=== PATIENT | male | born 1975 | race Caucasian/White ===

== ENCOUNTER → 2021-04-22 17:21 | Outpatient (CLI) | payer BC, SELFPAY ==
[2021-04-22 19:14] LABS: Basophils # 0.1 K/mm3 (0-0.2); Eosinophils # 0.1 K/mm3 (0.0-0.4); Eosinophils % 1.6 % (0.1-12.0); Hematocrit 53.6 % (42.0-52.0); Lymphocytes # 2.7 K/mm3 (0.7-4.5); Lymphocytes % 30.8 % (10-50); Mean Corpuscular HGB Conc 34.4 g/dL (31.8-35.4); Mean Corpuscular Hemoglobin 32.3 pg (27.0-31.2); Mean Platelet Volume 9.4 fl (7.4-10.4); Monocytes # 0.5 K/mm3 (0.1-1.0); Monocytes % 5.1 % (1.7-9.3); Neutrophils # 5.5 K/mm3 (1.8-7.8); Neutrophils % 61.5 % (37.0-80.0); Platelet Count 175 K/mm3 (142-424); Red Cell Distribution Width 12.7 % (11.5-17.5); White Blood Count 8.9 K/mm3 (4.8-10.8)
[2021-04-22 19:35] LABS: Alanine Aminotransferase 138 U/L (12-78); Albumin/Globulin Ratio 1.6 (1.1-1.8); Alkaline Phosphatase 128 U/L (38-126); Anion Gap 16.5 mEq/L (5-15); Aspartate Amino Transferase 97 U/L (17-59); Bilirubin,Total 0.9 mg/dl (0.2-1.3); Blood Urea Nitrogen 7 mg/dl (9-20); Calcium 9.8 mg/dl (8.4-10.2); Carbon Dioxide 25 mmol/L (22.0-30.0); Chloride 102 mmol/L (98-107); Cholesterol 201 mg/dl (140-200); Estimated Glomerular Filt Rate 105 ml/min (>60); GFR (African American) 127 ML/MIN (>60); Globulin 3.1 g/dL (1.3-3.2); Glucose 94 mg/dl (74-100); Potassium 4.5 mmoL/L (3.5-5.1); Sodium 139 mmol/L (136-145); Total Protein,Serum 8.1 g/dl (6.3-8.2); Triglycerides 48 mg/dl (30-150); VLDL Cholesterol 10 mg/dL (0-40)
[2021-04-22 19:45] LABS: Chol/HDL Ratio 1.5 (1-3.5); HDL Cholesterol 136 mg/dl (40-60)
[2021-04-22 19:46] LABS: Direct LDL Cholesterol 58.29 mg/dL (100-129)
[2021-04-22 19:51] LABS: T4 (Thyroxine) 7.1 ug/dl (5.53-11.0)
[2021-04-22 19:53] LABS: 25-OH Vitamin D, Total 39.6 ng/mL (30-100)
[2021-04-22 20:05] LABS: Prostate Specific Ag Screen 1.6 ng/ml (0.0-4.0); Thyroid Stimulating Hormone 4.36 uIU/mL (0.465-4.68)
[2021-04-22 21:28] LABS: Hemoglobin 18.4 g/dL (14.1-18.0)
[2021-04-25 07:28] LABS: Hep A Ab, IgM Negative (Negative); Hepatitis B Core Antibody IgM Negative (Negative); Hepatitis B Surface Antigen Negative (Negative); Hepatitis C Antibody <0.1 s/co ratio (0.0-0.9)
== END ==
PROVIDERS: Visit Provider Nurse Practitioner Family
DX: R53.83 Other fatigue (principal); Z12.5 Encounter for screening for malignant neoplasm of prostate
CPT/HCPCS: 80053; 80061; 80074; 82306; 84436; 84443; 85025; G0103

== ENCOUNTER 2024-11-16 15:48 | Emergency (ER) | payer BC, SELFPAY ==
--- NOTE | 2024-11-16 16:11 | ED_ITS ---
Discharge Plan Disposition Patient Disposition: Home, Self-Care Condition: Good Prescriptions Prescriptions: New azithromycin [Zithromax] 250 mg tablet 250 mg PO UD DOSE PK Qty: 6 0RF Rx Instructions: Take two (2) tablets today, then one (1) tablet days #2 thru #5 benzonatate 100 mg capsule 100 mg PO TIDP PRN (Reason: Cough) Qty: 30 0RF methylprednisolone 4 mg Tablets,Dose Pack 4 mg PO DIRECTED 6 Days Qty: 21 0RF Rx Instructions: Take 1 pack as directed for 6 days amoxicillin-pot clavulanate 875-125 mg Tablet 1 tab PO Q12H Qty: 20 0RF albuterol sulfate [Ventolin HFA] 90 mcg/actuation HFA aerosol inhaler 2 puff inhalation Q6H PRN (Reason: shortness of breath or wheezing) Qty: 6.7 0RF No Action [id number]-[id number]-ZV 3.5-10,000-1 mg/mL-unit/mL-% drops,suspension 4 drp OTIC TID 10 Days Qty: 10 0RF albuterol sulfate 90 mcg/actuation aerosol powdr breath activated 2 inh INHALATION Q4-6H PRN (Reason: shortness of breath or wheezing) Qty: 1 0RF Referrals Follow up/Referrals: Robel Mesa APRN [Primary Care Provider] - See instructions Activity Restrictions/Add. Instructions Additional Instructions/Restrictions: Drink plenty of fluids. Take tylenol or ibuprofen for pain or fever. Take the medications as directed. Follow up with your regular doctor. GO TO THE ER FOR ANY WORSENING SYMPTOMS Clinical Impressions Clinical Impression: Pneumonia Instructions Patient Instructions: Pneumonia--Adult Print Language Print Language: Omani Discharge ED Provider: Ladarius Berry [facility] [place] HPI General Stated complaint: carol, weak, SOA Time Seen by Provider: 11/16/24 16:11 Related Data Previous Rx's ?Medication ?Instructions ?Recorded albuterol sulfate 90 mcg/actuation 2 inh inhalation Q4-6H PRN 04/22/21 breath activated powder inhaler shortness of breath or wheezing #1 ea xjkwulfn-fhgxvrosv-stvovickx 3.5 4 drp otic (ear) TID 10 days #10 mL 04/22/21 mg-10,000 unit/mL-1 % ear drops,susp albuterol sulfate 90 mcg/actuation 2 puff inhalation Q6H PRN 11/16/24 aerosol inhaler (Ventolin HFA) shortness of breath or wheezing #6.7 grams amoxicillin 875 mg-potassium 1 tab PO Q12H #20 tabs 11/16/24 clavulanate 125 mg tablet azithromycin 250 mg tablet 250 mg PO UD DOSE PK #6 tabs 11/16/24 (Zithromax) benzonatate 100 mg capsule 100 mg PO TIDP PRN Cough #30 caps 11/16/24 methylprednisolone 4 mg tablets in 4 mg PO DIRECTED 6 days #21 tabs 11/16/24 a dose pack Allergies Allergy/AdvReac Type Severity Reaction Status Date / Time No Known Allergies Allergy Verified 04/22/21 14:16 [facility] Disclaimer: The information contained in this section may have been updated after the patient was seen, as this information can be updated by other users. Social History Smoking Status: Current every day smoker tobacco type: cigarettes packs per day: 2 alcohol intake: current alcohol intake frequency: a few times a week current occupational status: employed Travel in the last 8 weeks: None Have you lived/traveled outside [place] in past 30 days?: No Contact w/someone who lives/traveled outside US past 30 days?: No Exposure to someone with infectious disease in past 14 days?: No Do you have a fever (greater than 100.4 F or 38 C)?: No Have you tested positive for COVID-19: No Exposed to someone with COVID-19 in past 14 days?: No Do you have a sore throat?: No Do you have a cough?: Yes Do you have any weakness?: Yes Do you have any diarrhea?: No Are you experiencing any unusual bleeding?: No Do you have any muscle aches/pain?: No Do you have any abdominal pain?: No Are you experiencing loss of taste or smell?: No ROS Obtained: Yes All systems reviewed & no additional complaints except as documented Constitutional Constitutional: Reports chills and Reports fever(s) Eyes Eyes: Denies eye discharge ENT Ears, Nose, Mouth, and Throat: Reports as per HPI Cardiovascular Cardiovascular: Denies chest pain Respiratory Respiratory: Denies chest congestion and Reports cough Gastrointestinal Gastrointestingal: Reports nausea; Denies abdominal pain, constipation, cramping, diarrhea or vomiting Musculoskeletal Musculoskeletal: Denies arthralgias Integumentary/Breasts Skin/Breast: Denies rash Neurologic Neurologic: Denies paresthesias Physical Exam General General appearance: alert and in no apparent distress Eye Eye exam: Present normal appearance, PERRL and EOMI ENT ENT exam: Present mucous membranes moist and normal external ear exam Expanded ENT Exam External ear exam: Present normal external inspection TM/Canal exam: Bilateral TM: erythema and bulging Nose exam: Absent sinus tenderness Nasal speculum exam: Bilateral: normal Mouth exam: Present normal external inspection; Absent drooling Teeth exam: Present normal inspection Throat exam: Present tonsillar erythema and tonsillomegaly Neck Neck exam: Present normal inspection, full ROM and trachea midline; Absent tenderness, lymphadenopathy or thyromegaly Chest Chest inspection: Present normal inspection and symmetric chest wall rise; Absent tenderness or rash Respiratory Respiratory exam: Present normal lung sounds bilaterally; Absent respiratory distress, wheezes, stridor or accessory muscle use Cardiovascular Cardiovascular exam: Present regular rate, normal rhythm and normal heart sounds Abdominal Exam Abdominal exam: Present soft; Absent distention, tenderness, guarding, rebound or rigidity Extremities Exam Extremities exam: Present normal inspection, full ROM and normal capillary refill; Absent tenderness or calf tenderness Back Exam Back exam: Present normal inspection and full ROM; Absent tenderness Neurological Exam Neurological exam: Present alert and oriented X3 Psychiatric Psychiatric exam: Present normal affect and normal mood Skin Skin exam: Present warm, dry, intact and normal color Lymphatic Lymphatic Findings: no adenopathy Medical Decision Making Medical Records Medical records reviewed: No I reviewed the patient's medical records. Screening: Per USPSTF and CDC recommendations, given the prevalence of disease in our region, it is our hospital?s policy to screen for HIV and viral Hepatitis for all patients aged 18 and over and those with ongoing risk factors. Chon Inquiry Pt receiving controlled substance: No Lab Data Lab results reviewed: Yes I reviewed the patient's lab results.
[2024-11-16 16:16] VITALS: BP 132/99; PULSE 119; RESP 21; TEMP 36.8; O2SAT 88; BMI 23.7
[2024-11-16] MEDS: IPRATROPIUM/ALBUTEROL 3 ML NEB IH (16:20)
--- NOTE | 2024-11-16 16:23 | XR_ITS ---
PROCEDURE INFORMATION: Exam: XR Chest Exam date and time: 11/16/2024 4:29 PM Age: 49 years old Clinical indication: Cough; Additional info: Shortness of breath, cough, flu like symptoms TECHNIQUE: Imaging protocol: Radiologic exam of the chest. Views: 2 views. COMPARISON: No relevant prior studies available. FINDINGS: Lungs: There is a consolidation in the right lower lobe concerning for pneumonia. Pleural spaces: No large effusion or pneumothorax. Heart/Mediastinum: No evidence of mediastinal widening or cardiac silhouette enlargement; the mediastinum and heart appear within normal limits for contour and size. Bones/joints: No evidence of acute osseous abnormalities within the visualized portions of the thoracic spine and ribs. Osseous structures appear appropriate for patient age. IMPRESSION: There is a consolidation in the right lower lobe concerning for pneumonia.
[2024-11-16 16:39] LABS: UTC Influenza A Antigen Negative (Negative); UTC Influenza B Antigen Negative (Negative)
[2024-11-16] MEDS: DEXAMETHASONE 4MG/ML 1ML VIAL 8 MG IM (17:45)
[2024-11-16] MEDS: cefTRIAXone 1GM VIAL 1 GM IM (17:45)
[2024-11-16] MEDS: LIDOCAINE 1% 5ML PF VIAL IM (17:45)
[2024-11-16 17:59] VITALS: BP 132/99; PULSE 119; RESP 21; TEMP 36.8; O2SAT 94
[2024-11-16 18:00] LABS: Coronavirus 19, PCR Not Detected (NotDetected); Influenza A, PCR Not Detected (NotDetected); Influenza B, PCR Not Detected (NotDetected)
== END 2024-11-16 18:00 | disposition home or self-care (01) ==
PROVIDERS: Emergency Provider Nurse Practitioner Family; PCP Nurse Practitioner Family
DX: J18.9 Pneumonia, unspecified organism (principal)
CPT/HCPCS: 71046; 87636; 87804; 99212; G0381; J0696; J1100; J7620

== ENCOUNTER 2024-12-03 10:50 | Emergency (ER) | payer BC, SELFPAY ==
--- NOTE | 2024-12-03 10:50 | ECG_ITS ---
APPROVED REPORT Exam: Resting ECG HR:111 bpm ECG Measurements Heart Rate 111 AXES DC 138 P 75 QRSd 92 QRS 5 QT 337 T 63 QTc 402 Conclusion SINUS TACHYCARDIA ABNORMAL RHYTHM ECG UNCONFIRMED REPORT EKG with sinus tachycardia with regular rate of [address] elevation or depression. QTc 402, DC normal at 138 Electronically signed by : DAPHNEY OTERO, 12/04/2024 07:00:12
[2024-12-03 10:51] VITALS: BP 181/101; PULSE 109; RESP 20; TEMP 36.8; O2SAT 95; BMI 24.3
[2024-12-03 11:00] VITALS: BP 157/110; PULSE 115; RESP 19; O2SAT 95
--- NOTE | 2024-12-03 11:08 | HMH.EDGENADL ---
Discharge Plan Disposition Patient Disposition: Home, Self-Care Condition: Fair Prescriptions Prescriptions: No Action No Known Home Medications Referrals Follow up/Referrals: Clark Mayo MD [Staff Physician] - See instructions (Establish PCP) Provider,MD Stephon [Primary Care Provider] - See instructions Activity Restrictions/Add. Instructions Additional Instructions/Restrictions: You are being referred to a primary care doctor to establish care. Call this number [phone] to schedule an appointment. Cut back on your alcohol use as this can lead to liver failure. If you develop any new or worsening symptoms, or if you become concerned for your health for any reason, return to the emergency department for evaluation Clinical Impressions Clinical Impression: Chest pain, Localized swelling of both lower legs Print Language Print Language: Irish Discharge ED Provider: Ranjit Sultana Adult HPI General Chief complaint: Chest Pain Stated complaint: Chest Pain Time Seen by Provider: 12/03/24 11:08 History of Present Illness HPI narrative: Nirmal Hayward is a 49-year-old male with a history of alcohol abuse and tobacco use who presents to the emergency department for complaints of chest pain and productive cough. Patient states that approximately 2 weeks ago, he was diagnosed with pneumonia at urgent treatment center but has not gotten any better. He states that his chest pain is more of a congestion on the left side of his chest that radiates to his left arm. He denies any vomiting, abdominal pain or diarrhea. He does note that he drinks at least 10 beers a day and started drinking a pint of whiskey approximately 5 months ago. At last drink was on the way here. He does not have a primary care physician. He is also complaining of swelling to his bilateral feet, left worse than right, that began approximately 2 weeks ago. Related Data Home Medications ?Medication ?Instructions ?Recorded ?Confirmed No Known Home Medications 12/03/24 12/03/24 Allergies Allergy/AdvReac Type Severity Reaction Status Date / Time Penicillins Allergy Rash Verified 12/03/24 12:10 [facility] Disclaimer: The information contained in this section may have been updated after the patient was seen, as this information can be updated by other users. Social History Smoking Status: Current every day smoker tobacco type: cigarettes packs per day: 2 alcohol intake: current alcohol intake frequency: a few times a week current occupational status: employed Travel in the last 8 weeks: None Have you lived/traveled outside US in past 30 days?: No Contact w/someone who lives/traveled outside US past 30 days?: No Exposure to someone with infectious disease in past 14 days?: No Do you have a fever (greater than 100.4 F or 38 C)?: No Have you tested positive for COVID-19: No Exposed to someone with COVID-19 in past 14 days?: No Do you have a sore throat?: No Do you have a cough?: No Do you have any weakness?: No Do you have any diarrhea?: No Are you experiencing any unusual bleeding?: No Do you have any muscle aches/pain?: No Do you have any abdominal pain?: No Are you experiencing loss of taste or smell?: No Other Medical History Have you received the Pneumonia Vaccine: No ROS Obtained: Yes Systems reviewed as appropriate & no additional complaints except as documented Physical Exam General General appearance: alert and in no apparent distress Head Head exam: atraumatic Eye Eye exam: Present normal appearance ENT ENT exam: Present normal external ear exam Neck Neck exam: Present full ROM Chest Chest inspection: Present symmetric chest wall rise Respiratory Respiratory exam: Present normal lung sounds bilaterally; Absent respiratory distress Cardiovascular Cardiovascular exam: Present normal rhythm and tachycardia Abdominal Exam Abdominal exam: Present soft; Absent tenderness or guarding exam: Present deferred Extremities Exam Extremities exam: Present edema (Pitting edema to the dorsum of both feet); Absent calf tenderness Back Exam Back exam: Present normal inspection Neurological Exam Neurological exam: Present alert and oriented X3 Psychiatric Psychiatric exam: Present normal affect Skin Skin exam: Present warm and dry Medical Decision Making Medical Records Screening: Per USPSTF and CDC recommendations, given the prevalence of disease in our region, it is our hospital?s policy to screen for HIV and viral Hepatitis for all patients aged 18 and over and those with ongoing risk factors. Chon Inquiry Pt receiving controlled substance: No Vital Signs: 12/03/24 10:51 12/03/24 11:00 12/03/24 12:00 Temperature 98.3 F Temperature Source Oral Pulse Rate 115 H 91 H Pulse Rate [Left Radial] 109 H Respiratory Rate 20 19 17 Blood Pressure 157/110 H 135/80 Blood Pressure [Right Arm] 181/101 H Blood Pressure Mean [Right Arm] 127 02 Sat by Pulse Oximetry 95 95 94 L Oxygen Delivery Method Room Air Room Air Room Air 12/03/24 12:30 12/03/24 13:00 12/03/24 13:43 Temperature 98.0 F Temperature Source Pulse Rate 103 H 98 H 95 H Pulse Rate [Left Radial] Respiratory Rate 15 21 16 Blood Pressure 138/106 H 136/101 H 136/101 H Blood Pressure [Right Arm] Blood Pressure Mean [Right Arm] 02 Sat by Pulse Oximetry 94 L 90 L Oxygen Delivery Method Room Air Room Air Room Air Lab Data Lab Results 12/03/24 10:55: WBC 3.9 L, RBC 4.24 L, Hgb 14.7, Hct 43.7, MCV 103.1 H, MCH 34.7 H, MCHC 33.6, RDW 14.1, Plt Count 84 L, MPV 10.6 H, Neut % (Auto) 50.5, Lymph % (Auto) 36.8, [place] % (Auto) 9.1, Eos % (Auto) 1.8, Baso % (Auto) 1.3, Neut # (Auto) 2.0, Lymph # (Auto) 1.5, [place] # (Auto) 0.4, Eos # (Auto) 0.1, Baso # (Auto) 0.1, PT 8.9 L, INR 0.79 L, D-Dimer 0.92 H, Sodium 141, Potassium 4.7, Chloride 101, Carbon Dioxide 31 H, Anion Gap 13.7, BUN 3 L, Creatinine 0.50 L, Estimated Creat Clear 185, Estimated GFR 177, Est GFR ( Amer) 215, Glucose 102 H, Calcium 8.7, Total Bilirubin 0.6, AST 118 H, ALT 69, Alkaline Phosphatase 247 H, Troponin I < 0.01, C-Reactive Protein 9.2 H, NT-Pro-B Natriuret Pep < 20.0, Total Protein 7.9, Albumin 4.1, Globulin 3.8 H, Albumin/Globulin Ratio 1.1, HCV Ab ANSELMO w/Rflx PCR Qn Negative, HIV Ag/Ab Combo Qual Negative 12/03/24 12:10: SARS-CoV-2 (PCR) Not detected, Influenza A Untype (PCR) Not detected, Influenza Type B (PCR) Not detected 12/03/24 10:55 12/03/24 10:55 Orders (Tests/Meds): ORDERS Category Date Time Status CXR 2 view (NOT portable) [XR chest 2V] Stat Exams 12/03/24 11:15 Completed BNP [NT Pro Brain Natriuretic Pep.] Stat Lab 12/03/24 10:55 Completed CBC w/Auto Diff [Complete Blood Count Auto Diff] Stat Lab 12/03/24 10:55 Completed CMP [Comprehensive Metabolic Panel] Stat Lab 12/03/24 10:55 Completed CRP [C-Reactive Protein] Stat Lab 12/03/24 10:55 Completed D-Dimer Stat Lab 12/03/24 10:55 Completed HIV Combo Stat Lab 12/03/24 10:55 Completed Hepatitis C Ab Qual. W/ RFX Stat Lab 12/03/24 10:55 Completed PT INR [Prothrombin Time INR] Stat Lab 12/03/24 10:55 Completed Rapid PCR Covid and Flu A/B Stat Lab 12/03/24 12:10 Completed Troponin I Stat Lab 12/03/24 10:55 Completed ECG Data Tracing #1: I reviewed this ECG and interpreted as documented below: EKG interpreted by me personally. Sinus tachycardia with a heart rate of [address] elevation or depression. No T wave inversions. QTc normal at 402, GA interval normal at 138. HEART Score History (anamnesis): Slightly suspicious ECG: Normal Age: 45-65 years Risk factors: 1-2 risk factors Troponin: </= normal limit HEART Score: 2 Medical Decision Narrative: Nirmal Mejia is a 49-year-old male with a history of alcohol abuse and tobacco use who presents to the emergency department for complaints of 2 weeks of cough and left-sided chest pain after being diagnosed with pneumonia approximately 2 weeks ago. He also reports worsening bilateral lower extremity swelling. He states that he drinks at least 10 beers a day and over the last 5 months has started drinking a pint of whiskey every day in addition to this. He denies any abdominal pain, fever or history of heart failure. On arrival, patient is hemodynamically stable, mildly tachycardic, afebrile, maintaining oxygen saturation above 90%. Physical exam is as stated above and is significant for pitting edema to the dorsum of both feet. Differential diagnosis includes, but is not limited to: ACS, pulmonary embolism, pneumonia, alcoholic cirrhosis, heart failure, among others. Workup in the emergency department included CBC with differential, PT/INR, D-dimer, CRP, CMP, COVID/flu testing, EKG, chest x-ray Chest x-ray interpreted by me personally. No focal consolidations, no pneumothoraces, no pulmonary effusions. See radiology report for details. Patient's EKG is interpreted as above. No significant findings on EKG. Laboratory studies demonstrated white blood cell count mildly low at 3.9 but no anemia, mildly low PT of 8.9, INR of 0.79, D-dimer elevated at 0.92, however based on years criteria, PE is unlikely at this time and no indication for CT PE. CMP with elevated AST of 118 and ALT of 69, alk phos elevated at 247. This could be secondary to alcohol use. Initial troponin less than 0.01. CRP mildly elevated 9.2. Negative flu/COVID. Patient has no acute findings on his workup today. He could be developing early cirrhosis given mild elevation in liver enzymes with his significant alcohol use. This could explain his bilateral lower extremity edema. Patient does not currently have a primary care physician, however is felt that he would greatly benefit from establishing care with a primary care physician. He is being referred to her primary care physician and was encouraged to call them to arrange an appointment as soon as possible. All questions were answered. He demonstrated understanding and was in agreement with this plan. He was then discharged from the emergency department in stable condition Critical Care Critical Care Time Critical Care Time: No
--- NOTE | 2024-12-03 11:15 | XR_ITS ---
FINAL REPORT CLINICAL HISTORY: Recent pneumonia, chest pain, smoker COMPARISON: None FINDINGS: No acute pulmonary density is evident. There is no evidence of effusion or other pleural disease. The mediastinum has a normal appearance. The cardiac silhouette is unremarkable. IMPRESSION: Unremarkable chest exam. Reviewed, Interpreted and Dictated by Gary Hart MD Transcribed by Jodi Nam Authenticated and [facility]
[2024-12-03 11:28] LABS: Basophils # 0.1 K/mm3 (0-0.2); Basophils % 1.3 % (0.1-2.0); Eosinophils # 0.1 K/mm3 (0.0-0.4); Eosinophils % 1.8 % (0.1-12.0); Hematocrit 43.7 % (42.0-52.0); Hemoglobin 14.7 g/dL (14.1-18.0); Lymphocytes # 1.5 K/mm3 (0.7-4.5); Lymphocytes % 36.8 % (10-50); Mean Corpuscular HGB Conc 33.6 g/dL (31.8-35.4); Mean Corpuscular Hemoglobin 34.7 pg (27.0-31.2); Mean Corpuscular Volume 103.1 fl (80-94); Mean Platelet Volume 10.6 fl (7.4-10.4); Monocytes # 0.4 K/mm3 (0.1-1.0); Monocytes % 9.1 % (1.7-9.3); Neutrophils % 50.5 % (37.0-80.0); Platelet Count 84 K/mm3 (142-424); Red Blood Count 4.24 M/mm3 (4.60-6.20); Red Cell Distribution Width 14.1 % (11.5-17.5); White Blood Count 3.9 K/mm3 (4.8-10.8)
[2024-12-03 11:29] LABS: Albumin Level 4.1 g/dl (3.5-5.0); Chloride 101 mmol/L (98-107); Potassium 4.7 mmoL/L (3.5-5.1); Sodium 141 mmol/L (136-145)
[2024-12-03 11:31] LABS: Anion Gap 13.7 mEq/L (5-15); Blood Urea Nitrogen 3 mg/dl (9-20); Carbon Dioxide 31 mmol/L (22.0-30.0); Creatinine Clearance Estimated 185 mL/min (50-200); Estimated Glomerular Filt Rate 177 ml/min (>60); GFR (African American) 215 ML/MIN (>60)
[2024-12-03 11:32] LABS: Alanine Aminotransferase 69 U/L (12-78); Albumin/Globulin Ratio 1.1 (1.1-1.8); Alkaline Phosphatase 247 U/L (38-126); Aspartate Amino Transferase 118 U/L (17-59); Bilirubin,Total 0.6 mg/dl (0.2-1.3); Calcium 8.7 mg/dl (8.4-10.2); Globulin 3.8 g/dL (1.3-3.2); Glucose 102 mg/dl (74-100); INR 0.79 (0.9-1.1); Prothrombin Time 8.9 seconds (9.2-12.1); Total Protein,Serum 7.9 g/dl (6.3-8.2)
[2024-12-03 11:38] LABS: C-Reactive Protein 9.2 mg/L (0-4)
[2024-12-03 11:45] LABS: NT Pro Brain Natriuretic Pep. < 20.0 pg/mL (0-125)
[2024-12-03 11:48] LABS: Troponin I < 0.01 ng/ml (0.00-0.034)
[2024-12-03 12:00] VITALS: BP 135/80; PULSE 91; RESP 17; O2SAT 94
[2024-12-03 12:12] LABS: Coronavirus 19, PCR Not Detected (NotDetected); Influenza A, PCR Not Detected (NotDetected); Influenza B, PCR Not Detected (NotDetected)
[2024-12-03 12:17] LABS: HIV Combo NEGATIVE (Negative)
[2024-12-03 12:25] LABS: Hepatitis C Ab Qual. W/ RFX NEGATIVE (Negative)
[2024-12-03 12:30] VITALS: BP 138/106; PULSE 103; RESP 15; O2SAT 94
[2024-12-03 13:00] VITALS: BP 136/101; PULSE 98; RESP 21; O2SAT 90
[2024-12-03 13:10] LABS: D-Dimer 0.92 ug/mL (0.0-0.5)
[2024-12-03 13:43] VITALS: BP 136/101; PULSE 95; RESP 16; TEMP 36.7; O2SAT 98
== END 2024-12-03 13:43 | disposition home or self-care (01) ==
PROVIDERS: Emergency Provider Student in an Organized Health Care Education/Training Program
DX: R07.9 Chest pain, unspecified (principal); R22.43 Localized swelling, mass and lump, lower limb, bilateral; R05.9 Cough, unspecified; F10.10 Alcohol abuse, uncomplicated; F17.210 Nicotine dependence, cigarettes, uncomplicated
CPT/HCPCS: 71046; 80053; 83880; 84484; 85025; 85378; 85610; 86140; 86803; 87389; 87636; 93005; 99284

== ENCOUNTER 2024-12-28 13:26 | Inpatient (IN) | payer BC, SELFPAY ==
[2024-12-28] VITALS (32 sets, daily range): BP systolic 122–185; BP diastolic 81–113; PULSE 84–130; RESP 12–23; TEMP 36.6–37.1; O2SAT 86–99; BMI 23.5; BMI 23.1
--- NOTE | 2024-12-28 13:26 | ECG_ITS ---
APPROVED REPORT Exam: Resting ECG HR:97 bpm ECG Measurements Heart Rate 97 AXES DE 138 P 71 QRSd 106 QRS 75 QT 361 T 32 QTc 416 Conclusion SINUS RHYTHM NORMAL ECG Electronically signed by : NASEEM ALVAREZ, 12/29/2024 06:28:03
--- NOTE | 2024-12-28 14:03 | ED_ITS ---
Discharge Plan Disposition Patient Disposition: Admitted Clinical Impressions Clinical Impression: Alcohol withdrawal, Pancreatitis Discharge ED Provider: Erica Page General Adult HPI <Elma Molina MD - Last Filed: 12/28/24 15:39> General Chief complaint: Weakness Stated complaint: Chest Tightness Time Seen by Provider: 12/28/24 14:03 Mode of Arrival: Wheelchair Source of Information: Patient Description of Symptoms (Recalled from ER Triage Doc. by RN): Patient states he is unable to walk, had pneumonia a couple weeks ago and hasn't gotten any better, complaint of peeing blood and dark tarry stools for a couple of weeks. Patient states that he drinks 15 beers a day and that his last drink was this morning. History of Present Illness HPI narrative: Patient is a 49-year-old with past medical history significant for alcohol use disorder who presents to the emergency department with inability to walk. Patient says that over the last 2 weeks he has had difficulty with balance and has numbness in tingling in his bilateral upper and lower extremities hands and feet worse than proximal extremities. Patient drinks 15+ beers per day last drink was this morning. He went to urgent care today and they referred him to the emergency department. Patient has had withdrawals in the past. Has never had seizures from his withdrawals. Related Data Home Medications ?Medication ?Instructions ?Recorded ?Confirmed No Known Home Medications 12/03/24 12/28/24 Allergies Allergy/AdvReac Type Severity Reaction Status Date / Time Penicillins Allergy Rash Verified 12/03/24 12:10 PFSH <Elma Molina MD - Last Filed: 12/28/24 15:39> [facility] Disclaimer: The information contained in this section may have been updated after the patient was seen, as this information can be updated by other users. Family History Other Lung cancer Social History Smoking Status: Current every day smoker tobacco type: cigarettes packs per day: 2 alcohol intake: current alcohol intake frequency: a few times a week current occupational status: employed Travel in the last 8 weeks: None Have you lived/traveled outside [place] in past 30 days?: No Contact w/someone who lives/traveled outside US past 30 days?: No Exposure to someone with infectious disease in past 14 days?: No Do you have a fever (greater than 100.4 F or 38 C)?: No Have you tested positive for COVID-19: No Exposed to someone with COVID-19 in past 14 days?: No Do you have a sore throat?: No Do you have a cough?: No Do you have any weakness?: No Are you experiencing any nausea/vomitting?: No Do you have any diarrhea?: No Are you experiencing any unusual bleeding?: No Do you have any muscle aches/pain?: No Do you have any abdominal pain?: No Are you experiencing loss of taste or smell?: No Other Medical History Have you received the Pneumonia Vaccine: No <Elma Molina MD - Last Filed: 12/28/24 15:39> ROS Obtained: Yes All systems reviewed & no additional complaints except as documented Physical Exam <Elma Molina MD - Last Filed: 12/28/24 15:39> General General appearance: alert Comment: Clinically sober Eye Eye exam: Present PERRL and EOMI (Left beating nystagmus) ENT ENT exam: Present mucous membranes dry Respiratory Respiratory exam: Present normal lung sounds bilaterally; Absent respiratory distress Cardiovascular Cardiovascular exam: Present regular rate and tachycardia Abdominal Exam Abdominal exam: Present soft; Absent distention or tenderness Neurological Exam Neurological exam: Present alert, oriented X3 and other (Decreased bilateral upper and lower extremity); Absent normal gait (Wide-based gait) Expanded Neurological Exam Cerebellar function: Abnormal Left: finger to nose and heel to gonzalez and Abnormal Right: finger to nose and heel to gonzalez Cerebellar function: wide-based gait Medical Decision Making <Elma Molina MD - Last Filed: 12/28/24 15:39> Medical Records Screening: Per USPSTF and CDC recommendations, given the prevalence of disease in our region, it is our hospital?s policy to screen for HIV and viral Hepatitis for all patients aged 18 and over and those with ongoing risk factors. Chon Inquiry Pt receiving controlled substance: No Vital Signs: 12/28/24 13:29 12/28/24 13:30 12/28/24 14:00 Temperature 97.9 F Temperature Source Oral Pulse Rate 99 H Pulse Rate [Radial] 96 H Respiratory Rate 17 18 13 Blood Pressure 147/103 H 150/94 H Blood Pressure [Right Arm] 147/103 H Blood Pressure Mean 112 Blood Pressure Mean [Right Arm] 117 Blood Pressure Source Blood Pressure Source [Right Arm] Automatic Cuff Blood Pressure Position Blood Pressure Position [Right Arm] Sitting 02 Sat by Pulse Oximetry 99 96 Oxygen Delivery Method Room Air 12/28/24 14:15 12/28/24 14:30 12/28/24 14:45 Temperature Temperature Source Pulse Rate 97 H 97 H 109 H Pulse Rate [Radial] Respiratory Rate 12 19 12 Blood Pressure 154/93 H Blood Pressure [Right Arm] Blood Pressure Mean Blood Pressure Mean [Right Arm] Blood Pressure Source Blood Pressure Source [Right Arm] Blood Pressure Position Blood Pressure Position [Right Arm] 02 Sat by Pulse Oximetry 93 L 95 95 Oxygen Delivery Method 12/28/24 15:00 12/28/24 15:31 12/28/24 16:00 Temperature Temperature Source Pulse Rate 106 H Pulse Rate [Radial] Respiratory Rate 18 23 16 Blood Pressure 143/95 H 124/91 H 143/92 H Blood Pressure [Right Arm] Blood Pressure Mean 111 Blood Pressure Mean [Right Arm] Blood Pressure Source Blood Pressure Source [Right Arm] Blood Pressure Position Blood Pressure Position [Right Arm] 02 Sat by Pulse Oximetry 86 L Oxygen Delivery Method 12/28/24 16:30 12/28/24 16:53 Temperature 97.9 F Temperature Source Oral Pulse Rate 106 H Pulse Rate [Radial] Respiratory Rate 14 14 Blood Pressure 122/83 122/83 Blood Pressure [Right Arm] Blood Pressure Mean Blood Pressure Mean [Right Arm] Blood Pressure Source Automatic Cuff Blood Pressure Source [Right Arm] Blood Pressure Position Sitting Blood Pressure Position [Right Arm] 02 Sat by Pulse Oximetry Oxygen Delivery Method Room Air Lab Data Lab Results 12/28/24 13:40: WBC 2.5 L, RBC 4.01 L, Hgb 14.4, Hct 40.3 L, MCV 100.5 H, MCH 35.9 H, MCHC 35.7 H, RDW 14.3, Plt Count 45 L*, MPV 11.8 H, Neut % (Auto) 31.1 L , Lymph % (Auto) 55.1 H, [place] % (Auto) 10.6 H, Eos % (Auto) 1.2, Baso % (Auto) 2.0, Neut # (Auto) 0.8 L*, Lymph # (Auto) 1.4, [place] # (Auto) 0.3, Eos # (Auto) 0.0, Baso # (Auto) 0.1, Total Counted 100, Neutrophils % (Manual) 30 L, L ymphocytes % (Manual) 54 H, Monocytes % (Manual) 13 H, Eosinophils % (Manual) 3, Platelet Estimate Marked decrease, Poikilocytosis 1+, Target Cells 1+, PT 10.3, INR 0.91, APTT 24.9, Sodium 137, Potassium 3.6, Chloride 99, Carbon Dioxide 29, Anion Gap 12.6, BUN 6 L, Creatinine 0.50 L, Estimated Creat Clear 174, Estimated GFR 177, Est GFR ( Amer) 215, Glucose 99, Calcium 8.8, Phosphorus 3.7, Magnesium 1.6, Total Bilirubin 1.4 H, AST 641 H*, ALT 191 H, Alkaline Phosphatase 204 H, Total Protein 7.4, Albumin 4.3, Globulin 3.1, Albumin/Globulin Ratio 1.4, Lipase 1778 H, Vitamin B12 860, Folate 3.11, P lasma/Serum Alcohol 398 H 12/28/24 14:12: VBG pH 7.40, VBG pCO2 41.4, VBG pO2 46.0 H, VBG HCO3 25.1, VBG Total CO2 26.3, VBG O2 Saturation 77.3 H, VBG Base Excess 0.3, VBG Lactic Acid 2.4 H 12/28/24 14:35: Urine Opiates Screen Negative, Urine Methadone Screen Negative, Ur Barbituates Screen Negative, Ur Phencyclidine Scrn Negative, Ur Amphetamines Screen Negative, U Benzodiazepines Scrn Negative, Urine Cocaine Screen Negative, U Marijuana (THC) Screen Negative 12/28/24 13:40 12/28/24 13:40 Orders (Tests/Meds): ED MEDICATIONS Generic Name Dose Route Start Last Admin Trade Name Freq PRN Reason Stop Dose Admin Folic Acid 1 mg 12/29/24 09:00 Folic Acid 1mg Tablet PO 01/28/25 08:59 DAILY FARHAN Multivitamins 10 ml/ Thiamine 1,015 mls @ 150 mls/hr 12/28/24 14:30 12/28/24 14:37 HCl 100 mg/ Magnesium Sulfate IV 12/28/24 21:15 150 mls/hr 2 gm/ Lactated Ringer's .Q6H46M ONE Administration Thiamine HCl 200 mg/ Sodium 52 mls @ 208 mls/hr 12/29/24 11:00 Chloride IV 01/28/25 10:59 1100 FARHAN Magnesium Sulfate 2 gm/ 1,015 mls @ 333 mls/hr 12/29/24 09:00 Thiamine HCl 100 mg/ IV 01/28/25 08:59 Multivitamins 10 ml/ Lactated DAILY FARHAN Ringer's Lorazepam 2 mg 12/28/24 15:57 Lorazepam 2mg/Ml Vial IV 01/27/25 15:56 Q1HP PRN CIWA >16 Lorazepam 1 mg 12/28/24 15:57 Lorazepam 1mg Tablet PO 01/27/25 15:56 Q1HP PRN CIWA Score 8-15 Lorazepam 1 mg 12/28/24 15:57 Lorazepam 2mg/Ml Vial IV 01/27/25 15:56 Q1HP PRN CIWA Score 8-15 Lorazepam 1 mg 12/28/24 15:57 Lorazepam 1mg Tablet PO 01/27/25 15:56 Q6HP PRN CIWA 2-7 Sodium Chloride 10 ml 12/28/24 15:57 Sodium Chloride 0.9% 10ml Vial IV 01/27/25 15:56 NEEDED PRN to Dilute Lorazepam inj Discontinued Medications Generic Name Dose Route Start Last Admin Trade Name Freq PRN Reason Stop Dose Admin Diazepam 5 mg 12/28/24 14:17 12/28/24 14:44 Diazepam 5mg Tablet PO 01/27/25 14:16 5 mg Q6HP PRN Administration CIWA 2-7 Lactated Ringer's 1,000 mls @ 999 mls/hr 12/28/24 14:21 12/28/24 15:23 Lactated Ringer's 1000 Ml Bag IV 12/28/24 15:21 Not Given .Q1H1M ONE Thiamine HCl 400 mg/ Sodium 54 mls @ 108 mls/hr 12/28/24 15:20 Chloride IV 12/28/24 15:49 ONCE ONE Iopamidol 75 ml 12/28/24 15:38 12/28/24 15:39 Iopamidol-370 (76%);100ml Bottle IV 12/28/24 15:39 75 ml ONCE ONE Administration Phenobarbital Sodium 130 mg 12/28/24 17:00 12/28/24 18:06 Phenobarbital Sod 65mg/Ml Inj IV 12/28/24 17:01 130 mg ONCE ONE Administration Sodium Chloride 10 ml 12/28/24 15:38 12/28/24 15:39 Sodium Chloride 0.9% 10ml Syr (Rad Only) IV 12/28/24 15:39 10 ml ONCE ONE Administration ORDERS Category Date Time Status CT abdomen pelvis w con Stat Cat Scan 12/28/24 15:25 Completed Consult Forward Air Controller/Air Officer [CONS] Routine Cons 12/28/24 14:34 Active Chest XR 2 view (NOT portable) [XR chest 2V] Stat Exams 12/28/24 15:25 Completed Activated Partial Thrombo Time Routine Lab 12/28/24 13:40 Completed Complete Blood Count Auto Diff AMLAB Lab 12/29/24 06:00 Ordered Complete Blood Count Auto Diff Stat Lab 12/28/24 13:40 Completed Comprehensive Metabolic Panel AMLAB Lab 12/29/24 06:00 Ordered Comprehensive Metabolic Panel Stat Lab 12/28/24 13:40 Completed Drug Screen,Urine Routine Lab 12/28/24 16:00 Ordered Drug Screen,Urine Stat Lab 12/28/24 14:35 Completed Ethyl Alcohol Stat Lab 12/28/24 13:40 Completed Folate Stat Lab 12/28/24 13:40 Completed Lipase Stat Lab 12/28/24 13:40 Completed Magnesium AMLAB Lab 12/29/24 06:00 Ordered Magnesium Stat Lab 12/28/24 13:40 Completed Phosphorous DAILY Lab 12/29/24 06:00 Ordered Phosphorous Stat Lab 12/28/24 13:40 Completed Prothrombin Time INR Routine Lab 12/28/24 13:40 Completed Vitamin B1 Routine Lab 12/28/24 14:31 Received Vitamin B12 Stat Lab 12/28/24 13:40 Completed Venous Blood Gas Stat RT 12/28/24 14:12 Completed Medical Decision Narrative: In summary, this 49-year-old male presents to the emergency department today with difficulty walking. On initial evaluation patient is normotensive tachycardic saturating appropriately on room air and in no acute. Differential diagnosis includes but is not limited to acute alcohol intoxication Korsakoff syndrome Warnicke's encephalopathy alcoholic pancreatitis acute hepatitis, alcohol withdrawal, ketoacidosis. Based on these concerns, I ordered CBC CMP lipase mag Phos, UA, PT/INR folate thiamine level Patient received rally pack and folic acid for treatment. Labs personally reviewed demonstrate transaminitis elevated lipase consistent with alcoholic hepatitis and pancreatitis. Exam findings consistent with thiamine deficiency. Laboratory workup concerning for alcoholic hepatitis and pancreatitis. Patient began scoring on CIWA during emergency rooms today. I had an interactive conversation with hospital medicine with recommendations to give total of 500 mg of IV thiamine and CT abdomen pelvis with IV contrast and chest x-ray. If imaging is nonactionable for acute surgical pathologies hospital medicine agreeable with admission to their service. Transfer care given to Dr. Page to follow-up CT abdomen pelvis and chest x-ray. Of note, social determinants of health include chronic alcohol use <Erica N Camilo, DO - Last Filed: 12/28/24 18:12> Vital Signs: 12/28/24 13:29 12/28/24 13:30 12/28/24 14:00 Temperature 97.9 F Temperature Source Oral Pulse Rate 99 H Pulse Rate [Radial] 96 H Respiratory Rate 17 18 13 Blood Pressure 147/103 H 150/94 H Blood Pressure [Right Arm] 147/103 H Blood Pressure Mean 112 Blood Pressure Mean [Right Arm] 117 Blood Pressure Source Blood Pressure Source [Right Arm] Automatic Cuff Blood Pressure Position Blood Pressure Position [Right Arm] Sitting 02 Sat by Pulse Oximetry 99 96 Oxygen Delivery Method Room Air 12/28/24 14:15 12/28/24 14:30 12/28/24 14:45 Temperature Temperature Source Pulse Rate 97 H 97 H 109 H Pulse Rate [Radial] Respiratory Rate 12 19 12 Blood Pressure 154/93 H Blood Pressure [Right Arm] Blood Pressure Mean Blood Pressure Mean [Right Arm] Blood Pressure Source Blood Pressure Source [Right Arm] Blood Pressure Position Blood Pressure Position [Right Arm] 02 Sat by Pulse Oximetry 93 L 95 95 Oxygen Delivery Method 12/28/24 15:00 12/28/24 15:31 12/28/24 16:00 Temperature Temperature Source Pulse Rate 106 H Pulse Rate [Radial] Respiratory Rate 18 23 16 Blood Pressure 143/95 H 124/91 H 143/92 H Blood Pressure [Right Arm] Blood Pressure Mean 111 Blood Pressure Mean [Right Arm] Blood Pressure Source Blood Pressure Source [Right Arm] Blood Pressure Position Blood Pressure Position [Right Arm] 02 Sat by Pulse Oximetry 86 L Oxygen Delivery Method 12/28/24 16:30 12/28/24 16:53 Temperature 97.9 F Temperature Source Oral Pulse Rate 106 H Pulse Rate [Radial] Respiratory Rate 14 14 Blood Pressure 122/83 122/83 Blood Pressure [Right Arm] Blood Pressure Mean Blood Pressure Mean [Right Arm] Blood Pressure Source Automatic Cuff Blood Pressure Source [Right Arm] Blood Pressure Position Sitting Blood Pressure Position [Right Arm] 02 Sat by Pulse Oximetry Oxygen Delivery Method Room Air Lab Data Lab Results 12/28/24 13:40: WBC 2.5 L, RBC 4.01 L, Hgb 14.4, Hct 40.3 L, MCV 100.5 H, MCH 35.9 H, MCHC 35.7 H, RDW 14.3, Plt Count 45 L*, MPV 11.8 H, Neut % (Auto) 31.1 L , Lymph % (Auto) 55.1 H, [place] % (Auto) 10.6 H, Eos % (Auto) 1.2, Baso % (Auto) 2.0, Neut # (Auto) 0.8 L*, Lymph # (Auto) 1.4, [place] # (Auto) 0.3, Eos # (Auto) 0.0, Baso # (Auto) 0.1, Total Counted 100, Neutrophils % (Manual) 30 L, L ymphocytes % (Manual) 54 H, Monocytes % (Manual) 13 H, Eosinophils % (Manual) 3, Platelet Estimate Marked decrease, Poikilocytosis 1+, Target Cells 1+, PT 10.3, INR 0.91, APTT 24.9, Sodium 137, Potassium 3.6, Chloride 99, Carbon Dioxide 29, Anion Gap 12.6, BUN 6 L, Creatinine 0.50 L, Estimated Creat Clear 174, Estimated GFR 177, Est GFR ( Amer) 215, Glucose 99, Calcium 8.8, Phosphorus 3.7, Magnesium 1.6, Total Bilirubin 1.4 H, AST 641 H*, ALT 191 H, Alkaline Phosphatase 204 H, Total Protein 7.4, Albumin 4.3, Globulin 3.1, Albumin/Globulin Ratio 1.4, Lipase 1778 H, Vitamin B12 860, Folate 3.11, P lasma/Serum Alcohol 398 H 12/28/24 14:12: VBG pH 7.40, VBG pCO2 41.4, VBG pO2 46.0 H, VBG HCO3 25.1, VBG Total CO2 26.3, VBG O2 Saturation 77.3 H, VBG Base Excess 0.3, VBG Lactic Acid 2.4 H 12/28/24 14:35: Urine Opiates Screen Negative, Urine Methadone Screen Negative, Ur Barbituates Screen Negative, Ur Phencyclidine Scrn Negative, Ur Amphetamines Screen Negative, U Benzodiazepines Scrn Negative, Urine Cocaine Screen Negative, U Marijuana (THC) Screen Negative Orders (Tests/Meds): ED MEDICATIONS Generic Name Dose Route Start Last Admin Trade Name Barbara PRN Reason Stop Dose Admin Folic Acid 1 mg 12/29/24 09:00 Folic Acid 1mg Tablet PO 01/28/25 08:59 DAILY FARHAN Multivitamins 10 ml/ Thiamine 1,015 mls @ 150 mls/hr 12/28/24 14:30 12/28/24 14:37 HCl 100 mg/ Magnesium Sulfate IV 12/28/24 21:15 150 mls/hr 2 gm/ Lactated Ringer's .Q6H46M ONE Administration Thiamine HCl 200 mg/ Sodium 52 mls @ 208 mls/hr 12/29/24 11:00 Chloride IV 01/28/25 10:59 1100 FARHAN Magnesium Sulfate 2 gm/ 1,015 mls @ 333 mls/hr 12/29/24 09:00 Thiamine HCl 100 mg/ IV 01/28/25 08:59 Multivitamins 10 ml/ Lactated DAILY FARHAN Ringer's Lorazepam 2 mg 12/28/24 15:57 Lorazepam 2mg/Ml Vial IV 01/27/25 15:56 Q1HP PRN CIWA >16 Lorazepam 1 mg 12/28/24 15:57 Lorazepam 1mg Tablet PO 01/27/25 15:56 Q1HP PRN CIWA Score 8-15 Lorazepam 1 mg 12/28/24 15:57 Lorazepam 2mg/Ml Vial IV 01/27/25 15:56 Q1HP PRN CIWA Score 8-15 Lorazepam 1 mg 12/28/24 15:57 Lorazepam 1mg Tablet PO 01/27/25 15:56 Q6HP PRN CIWA 2-7 Sodium Chloride 10 ml 12/28/24 15:57 Sodium Chloride 0.9% 10ml Vial IV 01/27/25 15:56 NEEDED PRN to Dilute Lorazepam inj Discontinued Medications Generic Name Dose Route Start Last Admin Trade Name Barbara PRN Reason Stop Dose Admin Diazepam 5 mg 12/28/24 14:17 12/28/24 14:44 Diazepam 5mg Tablet PO 01/27/25 14:16 5 mg Q6HP PRN Administration CIWA 2-7 Lactated Ringer's 1,000 mls @ 999 mls/hr 12/28/24 14:21 12/28/24 15:23 Lactated Ringer's 1000 Ml Bag IV 12/28/24 15:21 Not Given .Q1H1M ONE Thiamine HCl 400 mg/ Sodium 54 mls @ 108 mls/hr 12/28/24 15:20 Chloride IV 12/28/24 15:49 ONCE ONE Iopamidol 75 ml 12/28/24 15:38 12/28/24 15:39 Iopamidol-370 (76%);100ml Bottle IV 12/28/24 15:39 75 ml ONCE ONE Administration Phenobarbital Sodium 130 mg 12/28/24 17:00 12/28/24 18:06 Phenobarbital Sod 65mg/Ml Inj IV 12/28/24 17:01 130 mg ONCE ONE Administration Sodium Chloride 10 ml 12/28/24 15:38 12/28/24 15:39 Sodium Chloride 0.9% 10ml Syr (Rad Only) IV 12/28/24 15:39 10 ml ONCE ONE Administration ORDERS Category Date Time Status CT abdomen pelvis w con Stat Cat Scan 12/28/24 15:25 Completed Consult Forward Air Controller/Air Officer [CONS] Routine Cons 12/28/24 14:34 Active Chest XR 2 view (NOT portable) [XR chest 2V] Stat Exams 12/28/24 15:25 Completed Activated Partial Thrombo Time Routine Lab 12/28/24 13:40 Completed Complete Blood Count Auto Diff AMLAB Lab 12/29/24 06:00 Ordered Complete Blood Count Auto Diff Stat Lab 12/28/24 13:40 Completed Comprehensive Metabolic Panel AMLAB Lab 12/29/24 06:00 Ordered Comprehensive Metabolic Panel Stat Lab 12/28/24 13:40 Completed Drug Screen,Urine Routine Lab 12/28/24 16:00 Ordered Drug Screen,Urine Stat Lab 12/28/24 14:35 Completed Ethyl Alcohol Stat Lab 12/28/24 13:40 Completed Folate Stat Lab 12/28/24 13:40 Completed Lipase Stat Lab 12/28/24 13:40 Completed Magnesium AMLAB Lab 12/29/24 06:00 Ordered Magnesium Stat Lab 12/28/24 13:40 Completed Phosphorous DAILY Lab 12/29/24 06:00 Ordered Phosphorous Stat Lab 12/28/24 13:40 Completed Prothrombin Time INR Routine Lab 12/28/24 13:40 Completed Vitamin B1 Routine Lab 12/28/24 14:31 Received Vitamin B12 Stat Lab 12/28/24 13:40 Completed Venous Blood Gas Stat RT 12/28/24 14:12 Completed Medical Decision Narrative: In summary, this 49-year-old male presents to the emergency department today with difficulty walking. On initial evaluation patient is normotensive tachycardic saturating appropriately on room air and in no acute. Differential diagnosis includes but is not limited to acute alcohol intoxication Korsakoff syndrome Warnicke's encephalopathy alcoholic pancreatitis acute hepatitis, alcohol withdrawal, ketoacidosis. Based on these concerns, I ordered CBC CMP lipase mag Phos, UA, PT/INR folate thiamine level Patient received rally pack and folic acid for treatment. Labs personally reviewed demonstrate transaminitis elevated lipase consistent with alcoholic hepatitis and pancreatitis. Exam findings consistent with thiamine deficiency. Laboratory workup concerning for alcoholic hepatitis and pancreatitis. Patient began scoring on CIWA during emergency rooms today. I had an interactive conversation with hospital medicine with recommendations to give total of 500 mg of IV thiamine and CT abdomen pelvis with IV contrast and chest x-ray. If imaging is nonactionable for acute surgical pathologies hospital medicine agreeable with admission to their service. Transfer care given to Dr. Page to follow-up CT abdomen pelvis and chest x-ray. Of note, social determinants of health include chronic alcohol use Camilo DO: I assumed care of the patient at 1500 at time of departure of the previous provider. I independently interpreted CT scan prior to radiology read and noted no obvious acute inflammatory process. I also independently interpreted chest x-ray prior to radiology read and noted no large focal consolidation concerning for pneumonia. Please see radiology read for final interpretation. Patient was admitted to the hospitalist in stable condition after interactive discussion for further evaluation and management of alcoholic hepatitis, pancreatitis, and alcohol withdrawals Critical Care <Elma Molina MD - Last Filed: 12/28/24 15:39> Critical Care Time Critical Care Time: No
[2024-12-28 14:35] LABS: Basophils # 0.1 K/mm3 (0-0.2); Eosinophils % 1.2 % (0.1-12.0); Hematocrit 40.3 % (42.0-52.0); Hemoglobin 14.4 g/dL (14.1-18.0); Lymphocytes # 1.4 K/mm3 (0.7-4.5); Lymphocytes % 55.1 % (10-50); Mean Corpuscular HGB Conc 35.7 g/dL (31.8-35.4); Mean Corpuscular Hemoglobin 35.9 pg (27.0-31.2); Mean Corpuscular Volume 100.5 fl (80-94); Mean Platelet Volume 11.8 fl (7.4-10.4); Monocytes # 0.3 K/mm3 (0.1-1.0); Monocytes % 10.6 % (1.7-9.3); Neutrophils # 0.8 K/mm3 (1.8-7.8); Neutrophils % 31.1 % (37.0-80.0); Red Blood Count 4.01 M/mm3 (4.60-6.20); Red Cell Distribution Width 14.3 % (11.5-17.5); White Blood Count 2.5 K/mm3 (4.8-10.8)
[2024-12-28] MEDS: MVI, ADULT NO.1 WITH VIT K 10 ML, THIAMINE HCL 100 MG, MAGNESIUM SULFATE 2 GM in LACTAT... 150 ML IV (14:37)
[2024-12-28 14:39] LABS: VBG Base Excess 0.3 mmol/L (-2.4-2.3); VBG HCO3 25.1 mmol/L (23-30); VBG Oxygen Saturation 77.3 % (50-70); VBG PCO2 41.4 mmol/L (35-51); VBG Total CO2 26.3 mmol/L (23-27)
[2024-12-28 14:42] LABS: Activated Partial Thrombo Time 24.9 seconds (22.8-30.6); INR 0.91 (0.9-1.1); Prothrombin Time 10.3 seconds (10.1-12.5)
[2024-12-28 14:43] LABS: Lactate Venous 2.4 mmol/L (0.4-2.0)
[2024-12-28] MEDS: diazePAM 5MG TABLET 5 MG PO (14:44)
[2024-12-28 14:46] LABS: Alanine Aminotransferase 191 U/L (12-78); Albumin Level 4.3 g/dl (3.5-5.0); Albumin/Globulin Ratio 1.4 (1.1-1.8); Alkaline Phosphatase 204 U/L (38-126); Anion Gap 12.6 mEq/L (5-15); Aspartate Amino Transferase 641 U/L (17-59); Bilirubin,Total 1.4 mg/dl (0.2-1.3); Blood Urea Nitrogen 6 mg/dl (9-20); Calcium 8.8 mg/dl (8.4-10.2); Carbon Dioxide 29 mmol/L (22.0-30.0); Chloride 99 mmol/L (98-107); Creatinine Clearance Estimated 174 mL/min (50-200); Estimated Glomerular Filt Rate 177 ml/min (>60); GFR (African American) 215 ML/MIN (>60); Globulin 3.1 g/dL (1.3-3.2); Glucose 99 mg/dl (74-100); Magnesium 1.6 mg/dl (1.6-2.3); Phosphorous 3.7 mg/dl (2.5-4.5); Potassium 3.6 mmoL/L (3.5-5.1); Sodium 137 mmol/L (136-145); Total Protein,Serum 7.4 g/dl (6.3-8.2)
[2024-12-28 14:55] LABS: Amphetamine/Metha Screen,Urine Negative ng/ml (<1000)
[2024-12-28 14:56] LABS: Barbiturates Screen,Urine Negative ng/ml (<200)
[2024-12-28 14:57] LABS: Benzodiazepines Screen,Urine Negative ng/ml (<200); Cannabinoid Screen,Urine Negative ng/ml (<50)
[2024-12-28 14:58] LABS: Cocaine Screen,Urine Negative ng/ml (<300); Methadone Screen,Urine Negative ng/ml (<300)
[2024-12-28 14:59] LABS: Opiate Screen,Urine Negative ng/ml (<300)
[2024-12-28 15:00] LABS: Phencyclidine Screen,Urine Negative ng/ml (<25)
[2024-12-28 15:01] LABS: Ethyl Alcohol 398 mg/dl (0-10)
--- NOTE | 2024-12-28 15:01 | PC.NURSE ---
Dr. Molina notified of ETOH 398 and Lipase 1777.
[2024-12-28 15:02] LABS: Lipase 1778 U/L (23-300)
--- NOTE | 2024-12-28 15:25 | XR_ITS ---
FINAL REPORT CLINICAL HISTORY: Shortness of breath COMPARISON: 12/03/2024 FINDINGS: PA and lateral views of the chest were obtained. No acute pulmonary density is evident. There is no evidence of effusion or other pleural disease. The mediastinum has a normal appearance. The cardiac silhouette is unremarkable. IMPRESSION: Unremarkable chest exam. Reviewed, Interpreted and Dictated by Gary Hart MD Transcribed by Chen Peñaloza Authenticated and [facility]
--- NOTE | 2024-12-28 15:25 | CT_ITS ---
FINAL REPORT TECHNIQUE: IV contrast enhanced exam This study was performed with techniques to keep radiation doses as low as reasonably achievable, (ALARA). Individualized dose reduction techniques using automated exposure control or adjustment of mA and/or kV according to the patient's size were employed. CLINICAL HISTORY: epigastric pain COMPARISON: None FINDINGS: CT ABDOMEN AND PELVIS WITH CONTRAST: Abdomen: Lung bases are clear. Note is made of bilateral gynecomastia. The gallbladder is unremarkable. Severe fatty infiltration of the liver is present. The spleen, pancreas and adrenal glands are unremarkable. Kidneys show no mass or obstruction. No bowel obstruction or fluid collection is seen. Pelvis: The appendix is unremarkable in appearance. Pelvic bowel loops are unremarkable. No fluid collection or adenopathy is seen. IMPRESSION: Severe fatty infiltration of the liver. No acute findings in the abdomen or pelvis. Reviewed, Interpreted and Dictated by Gary Hart MD Transcribed by Jodi Nam Authenticated and [facility]
[2024-12-28 15:33] LABS: Platelet Count 45 K/mm3 (142-424)
--- NOTE | 2024-12-28 15:33 | PC.NURSE ---
Dr. Molina notified of PLT level of 45.
[2024-12-28 15:34] LABS: MANUAL DIFFERENTIAL MANUAL DIFFERENTIAL (MANUAL DIFF); Vitamin B12 860 pg/mL (239-931)
[2024-12-28] MEDS: SODIUM CHLORIDE 0.9% 10ML SYR (RAD ONLY) 10 ML IV (15:39)
[2024-12-28] MEDS: IOPAMIDOL-370 (76%);100ML BOTTLE 75 ML IV (15:39)
[2024-12-28 15:50] LABS: Eosinophils % 3 % (0-3); Lymphocytes % 54 % (10-50); Monocytes % 13 % (2-9); Neutrophils % 30 % (42-76); Platelet Estimate Marked Decrease; Poikilocytosis 1+; Target Cells 1+; Total Cells Counted 100
[2024-12-28 15:55] LABS: Folate 3.11 ng/mL
--- NOTE | 2024-12-28 16:03 | EXP.HP ---
History of Present Illness *Admission Date: 12/28/24 *Reason for visit:: intoxicated, abdominal pain *History of present illness: Mr. Hayward is a 49-year-old male who drinks daily. Presented to the ER because of inability to walk or get around without support for the past couple of weeks. Had pneumonia couple weeks ago but has not gotten any better. Family at bedside states he has had increased yellowing of his eyes and darkening of his skin. Has fallen and bruised easily. States he drinks about 15 beers a day along with liquor. Last drink was this morning. His weakness and inability to walk is what led to him coming to the ER for evaluation. Denies chest pain, nausea, abdominal pain. Does complain of some heartburn. Afebrile. Alert and oriented x 3. Able to give history. Interested in stopping drinking. Workup in the ER concerning for Wernicke's encephalopathy with nystagmus and tremor along with confusion. Alcohol level 390. Platelets 48. Lipase elevated along with elevation of liver enzymes. Has had withdrawals and seizures in the past. Medicine consulted for admission and management of alcoholic hepatitis and pancreatitis. Patient admitted to ICU due to high risk for seizures and decompensation. On evaluation, he appears grossly jaundiced. Has present tremor. Able to answer questions appropriately. Very anxious. Tachycardic on evaluation. No significant abdominal pain on exam. States he eats 1 good meal a day, otherwise drinks continuously. [facility] Disclaimer: The information contained in this section may have been updated after the patient was seen, as this information can be updated by other users. Family History Other Lung cancer Social History Smoking Status: Current every day smoker tobacco type: cigarettes packs per day: 2 alcohol intake: current alcohol intake frequency: a few times a week current occupational status: employed Travel in the last 8 weeks: None Have you lived/traveled outside [place] in past 30 days?: No Contact w/someone who lives/traveled outside US past 30 days?: No Exposure to someone with infectious disease in past 14 days?: No Do you have a fever (greater than 100.4 F or 38 C)?: No Have you tested positive for COVID-19: No Exposed to someone with COVID-19 in past 14 days?: No Do you have a sore throat?: No Do you have a cough?: No Do you have any weakness?: No Are you experiencing any nausea/vomitting?: No Do you have any diarrhea?: No Are you experiencing any unusual bleeding?: No Do you have any muscle aches/pain?: No Do you have any abdominal pain?: No Are you experiencing loss of taste or smell?: No Other Medical History Have you received the Pneumonia Vaccine: No Review of Systems Review of Systems Review of systems (narrative): 14 point review of systems performed, pertinent positives and negatives as per HPI Meds Home Medications and Allergies Home Medications ?Medication ?Instructions ?Recorded ?Confirmed ?Type No Known Home Medications 12/03/24 12/28/24 History New Prescriptions to Start Prescriptions: Allergies Allergy/AdvReac Type Severity Reaction Status Date / Time Penicillins Allergy Rash Verified 12/03/24 12:10 Exam Data for Last 24 hours Vital signs and Labs for Last 24 Hours: Temp Pulse Resp BP Pulse Ox O2 Del Method 97.9 F 106 H 18 143/95 H 86 L Room Air 12/28/24 13:30 12/28/24 15:00 12/28/24 15:00 12/28/24 15:00 12/28/24 15:00 12/28/24 13:30 Laboratory Results - last 24 hr 12/28/24 13:40: WBC 2.5 L, RBC 4.01 L, Hgb 14.4, Hct 40.3 L, MCV 100.5 H, MCH 35.9 H, MCHC 35.7 H, RDW 14.3, Plt Count 45 L*, MPV 11.8 H, Neut % (Auto) 31.1 L, Lymph % (Auto) 55.1 H, [place] % (Auto) 10.6 H, Eos % (Auto) 1.2, Baso % (Auto) 2.0, Neut # (Auto) 0.8 L*, Lymph # (Auto) 1.4, [place] # (Auto) 0.3, Eos # (Auto) 0.0, Baso # (Auto) 0.1, Total Counted 100, Neutrophils % (Manual) 30 L, Lymphocytes % (Manual) 54 H, Monocytes % (Manual) 13 H, Eosinophils % (Manual) 3, Platelet Estimate Marked decrease, Poikilocytosis 1+, Target Cells 1+, PT 10.3, INR 0.91, APTT 24.9, Sodium 137, Potassium 3.6, Chloride 99, Carbon Dioxide 29, Anion Gap 12.6, BUN 6 L, Creatinine 0.50 L, Estimated Creat Clear 174, Estimated GFR 177, Est GFR ( Amer) 215, Glucose 99, Calcium 8.8, Phosphorus 3.7, Magnesium 1.6, Total Bilirubin 1.4 H, AST 641 H*, ALT 191 H, Alkaline Phosphatase 204 H, Total Protein 7.4, Albumin 4.3, Globulin 3.1, Albumin/Globulin Ratio 1.4, Lipase 1778 H, Vitamin B12 860, Folate 3.11, Plasma/Serum Alcohol 398 H 12/28/24 14:12: VBG pH 7.40, VBG pCO2 41.4, VBG pO2 46.0 H, VBG HCO3 25.1, VBG Total CO2 26.3, VBG O2 Saturation 77.3 H, VBG Base Excess 0.3, VBG Lactic Acid 2.4 H 12/28/24 14:35: Urine Opiates Screen Negative, Urine Methadone Screen Negative, Ur Barbituates Screen Negative, Ur Phencyclidine Scrn Negative, Ur Amphetamines Screen Negative, U Benzodiazepines Scrn Negative, Urine Cocaine Screen Negative, U Marijuana (THC) Screen Negative I & O for Last 24 hours: Intake & Output 12/25/24 12/26/24 12/27/24 12/28/24 23:59 23:59 23:59 23:59 Weight 68.039 kg Constitutional Constitutional: moderate distress, average body habitus, disheveled and cooperative *Routine HEENT Exam Head: Present normocephalic and atraumatic Eye: Present EOMI, PERRL and conjunctival icterus ENT: Present mucous membranes moist *Routine Neck Exam Neck: Present supple; Absent JVD Routine Chest/Breast/Axilla Exam Chest wall: Absent tenderness *Routine Respiratory Exam Respiratory: Present CTA bilaterally; Absent accessory muscle use, respiratory distress, rhonchi, wheezes or crackles *Routine Cardiovascular Exam Cardiovascular: Present Normal S1, Normal S2 and tachycardia; Absent murmur *Routine Abdominal Exam Abdominal: Present soft, normoactive bowel sounds and tenderness (upper abdomen); Absent distended *Routine Rectal Exam Rectal:: deferred *Routine Genitalia Exam Genitalia:: deferred *Routine Extremities Exam Extremities: Absent cyanosis, clubbing or edema *Routine Skin Exam Skin: Present intact and jaundice; Absent cyanosis or erythema *Routine Neurological Exam Neurological: Present alert, oriented X3, CN II-XII intact and moving all extremities; Absent sensory deficit Comments: Tremor Routine Psychiatric Exam Psychiatric: Present normal affect and normal thought process; Absent suicidal ideation or homicidal ideation Assessment and Plan *Assessment and plan (1) Alcoholic hepatitis: Status: Acute Category: Medical Code(s): K70.10 - Alcoholic hepatitis without ascites (2) Delirium, withdrawal, alcoholic: Status: Acute Category: Medical Code(s): F10.931 - Alcohol use, unspecified with withdrawal delirium (3) Wernickes encephalopathy: Status: Acute Category: Medical Code(s): E51.2 - Wernicke's encephalopathy (4) Pancreatitis: Status: Acute Category: Medical Code(s): K85.90 - Acute pancreatitis without necrosis or infection, unspecified (5) Thrombocytopenia: Status: Acute Category: Medical Code(s): D69.6 - Thrombocytopenia, unspecified Plan 49-year-old male who presents with weakness and inability to walk. Found to have alcohol intoxication, alcoholic hepatitis, pancreatitis, concern for Wernicke's encephalopathy. Discussed case with ER physician, request admission for further management. I agreed to admit, admitted to ICU for further care. Patient high risk for decompensation. Monitor with seizure precautions. Will load with phenobarbital 130 mg IV once. Initiated on CIWA protocol. Problems addressed as follows: Alcohol intoxication with withdrawal Alcoholic hepatitis White count 2.5, found to be neutropenic with neutrophil count of 800. Hemoglobin 14.4. MCV 100. Platelets 45. Kidney function normal with BUN 6, creatinine 0.5. -AST 641, bilirubin 1.4, ALT 191, alk phos 204. CT of abdomen obtained, no obstructing stones appreciated. Has significant fatty infiltration per my review of CT. -Lipase 1700. Alcohol level 398. UDS negative -Chest x-ray with no focal consolidation or airspace disease -Initiate CIWA protocol with Ativan due to hepatitis. Will load with phenobarbital 130 mg IV once. Continue 65 mg twice daily -Continue thiamine daily. Initiated on 500 mg IV once today. Continue 250 mg daily. Continue rally pack daily -Regular diet. -senior bioinformatics specialist consulted -MELD score of 9; Maddrey's 1.4 -Phosphorus 3.7 Thrombocytopenia likely secondary to alcoholism and liver disease. Will monitor for improvement. High risk for bleeding. Holding anticoagulation. Pantoprazole 40 mg IV nightly for GERD, Tums 500 milligrams as needed 4 times a day. Repeat CBC, CMP, magnesium and phosphorus ordered for the morning Nicotine patch daily Full code Regular diet, monitor for pain and pancreatitis. Anticoagulation contraindicated due to thrombocytopenia
--- NOTE | 2024-12-28 16:24 | PC.NURSE ---
Report given to Ekta Terrell RN in the ICU.
[2024-12-28] MEDS: PHENobarbital SOD 65MG/ML INJ 130 MG IV (18:06)
[2024-12-28] MEDS: NICOTINE 21MG/24HR PATCH 21 MG TD (18:20)
[2024-12-28] MEDS: LORazepam 1MG TABLET 1 MG PO ×2 (18:20→20:30)
[2024-12-28 18:42] LABS: Reflex Lactic Add Lactic Reflex
[2024-12-28 19:24] LABS: Lactic Acid Follow Up (RFLX 1) 2.7 mmol/L (0.7-2.1)
[2024-12-28] MEDS: PANTOPRAZOLE 40MG VIAL 40 MG IV (20:31)
[2024-12-28] MEDS: PHENobarbital SOD 65MG/ML INJ 65 MG IV (20:32)
[2024-12-28 21:02] LABS: Reflex Lactic (2 hrs) Add Lactic Reflex
[2024-12-28] MEDS: LORazepam 2MG/ML VIAL 2 MG IV (23:01)
--- NOTE | 2024-12-28 23:28 | PC.NURSE ---
provider commission clerk, justin was contacted regarding patient blood pressure being elevated, sbp in 180's, orders to give 65mg more of phenobarb now and he will address future doses. Will continue to monitor patient blood pressure throughout the night.
--- NOTE | 2024-12-28 23:28 | EXP.EVENT.NO ---
Problem: Nursing called to let me know that the patient's blood pressure is up and that he does have tremors. That he had been given benzodiazepine but was still quite uncomfortable exam: Patient with basically all over body tremor Plan: Will give an extra 65 mg of phenobarbital now. Will then change to the regular order for phenobarbital that was at 65 to 130 mg that we will start twice daily at 9 AM. Last dose of 65 mg was given at 9 PM. One-time dose to be given at 2330. Due to the patient being so uncomfortable we will give 1 dose of diazepam longer acting and have numbers use lorazepam as ordered adjusting frequency as needed.
[2024-12-29] VITALS (62 sets, daily range): BP systolic 108–225; BP diastolic 69–130; PULSE 35–136; RESP 15–24; TEMP 36.7–37.4; O2SAT 79–100; BMI 23.3
[2024-12-29] MEDS: PHENobarbital SOD 65MG/ML INJ 65 MG IV (00:11)
[2024-12-29] MEDS: METHYLPREDNISOLONE SOD SUCC 40MG VIAL 40 MG IV (00:17)
[2024-12-29] MEDS: diazePAM 10MG/2ML SYRINGE 5 MG IV (00:17)
[2024-12-29] MEDS: LORazepam 2MG/ML VIAL 2 MG IV ×3 (01:02→04:09)
--- NOTE | 2024-12-29 01:20 | PC.NURSE ---
Md called again about blood pressure being elevated, communication order not to be concerned unless sbp is greater than 210. Nurse notified Jimmy LEMOS about blood pressure and worsening withdrawal symptoms, Nurse instructed to continue lorazepam that is ordered. patient was out of bed trying to stumble around room, nursing staff escorted him back to his bed, changed him to dry clothes and put bed alarm on.
[2024-12-29 07:09] LABS: Basophils % 1.3 % (0.1-2.0); Eosinophils # 0.1 K/mm3 (0.0-0.4); Eosinophils % 2.1 % (0.1-12.0); Hematocrit 39.1 % (42.0-52.0); Hemoglobin 14.2 g/dL (14.1-18.0); Lymphocytes # 0.4 K/mm3 (0.7-4.5); Lymphocytes % 15.9 % (10-50); Mean Corpuscular HGB Conc 36.3 g/dL (31.8-35.4); Mean Corpuscular Hemoglobin 35.5 pg (27.0-31.2); Mean Corpuscular Volume 97.8 fl (80-94); Mean Platelet Volume 12.4 fl (7.4-10.4); Monocytes # 0.1 K/mm3 (0.1-1.0); Monocytes % 3.9 % (1.7-9.3); Neutrophils # 1.8 K/mm3 (1.8-7.8); Neutrophils % 75.9 % (37.0-80.0); Red Cell Distribution Width 13.6 % (11.5-17.5); White Blood Count 2.3 K/mm3 (4.8-10.8)
[2024-12-29 07:14] LABS: Platelet Count 40 K/mm3 (142-424)
[2024-12-29 07:21] LABS: Alanine Aminotransferase 175 U/L (12-78); Albumin Level 4.3 g/dl (3.5-5.0); Albumin/Globulin Ratio 1.5 (1.1-1.8); Alkaline Phosphatase 188 U/L (38-126); Anion Gap 12.7 mEq/L (5-15); Aspartate Amino Transferase 428 U/L (17-59); Bilirubin,Total 2.3 mg/dl (0.2-1.3); Blood Urea Nitrogen 3 mg/dl (9-20); Calcium 8.8 mg/dl (8.4-10.2); Carbon Dioxide 26 mmol/L (22.0-30.0); Chloride 95 mmol/L (98-107); Creatinine Clearance Estimated 224 mL/min (50-200); Estimated Glomerular Filt Rate 230 ml/min (>60); GFR (African American) 278 ML/MIN (>60); Globulin 2.9 g/dL (1.3-3.2); Glucose 165 mg/dl (74-100); Magnesium 1.6 mg/dl (1.6-2.3); Phosphorous 3.2 mg/dl (2.5-4.5); Potassium 3.7 mmoL/L (3.5-5.1); Sodium 130 mmol/L (136-145); Total Protein,Serum 7.2 g/dl (6.3-8.2)
[2024-12-29] MEDS: MAGNESIUM SULFATE 2 GM, THIAMINE HCL 100 MG, MVI, ADULT NO.1 WITH VIT K 10 ML in LACTAT... IV (08:50)
[2024-12-29] MEDS: PHENobarbital SOD 130MG/ML INJ 130 MG IV ×2 (08:54→20:22)
[2024-12-29] MEDS: FOLIC ACID 1MG TABLET 1 MG PO (08:54)
--- NOTE | 2024-12-29 09:27 | P.PN_ITS ---
Subjective *Date: 12/29/24 *Time: 14:38 Interval history: Worsening withdrawal symptoms overnight. Scores elevated up to about 20. Necessitated increase in phenobarbital and frequent Ativan every hour. Significant tremor on exam this morning. Remained stable on room air. No seizure activity. Denies nausea or vomiting Medical Exam Vital signs and Labs for Last 24 Hours: Vital Signs Temp Pulse Pulse Resp BP BP Pulse Ox 12/29/24 08:00 163/108 H 12/29/24 08:00 20 12/29/24 07:58 17 12/29/24 07:58 124 H 18 156/102 H 12/29/24 07:45 20 12/29/24 07:30 65 19 79 L 12/29/24 07:15 18 12/29/24 07:00 165/110 H 12/29/24 07:00 130 H 19 165/110 H 94 L 12/29/24 06:55 12/29/24 06:38 12/29/24 06:30 21 12/29/24 06:00 107 H 20 187/97 H 92 L 12/29/24 05:15 111 H 21 90 L 12/29/24 05:00 102 H 21 172/103 H 92 L 12/29/24 04:01 100 H 12/29/24 04:00 111 H 21 182/116 H 94 L 12/29/24 03:00 88 20 176/108 H 93 L 12/29/24 02:31 12/29/24 02:00 102 H 20 179/123 H 90 L 12/29/24 01:19 100 H 21 117/113 H 93 L 12/29/24 01:00 70 225/130 H 81 L 12/29/24 00:29 100 H 12/29/24 00:00 118 H 186/100 H 90 L 12/28/24 23:00 19 185/113 H 12/28/24 22:19 12/28/24 22:15 88 15 87 L 12/28/24 22:00 96 H 18 158/100 H 91 L 12/28/24 21:45 130 H 21 95 12/28/24 21:21 94 H 12/28/24 21:00 96 H 13 133/81 89 L 12/28/24 21:00 12/28/24 20:45 110 H 17 93 L 12/28/24 20:30 12/28/24 20:00 94 H 15 131/82 92 L 12/28/24 20:00 12/28/24 19:45 129 H 16 97 12/28/24 19:00 117 H 19 146/99 H 93 L 12/28/24 19:00 109 H 18 146/99 H 93 L 12/28/24 19:00 12/28/24 18:45 108 H 15 91 L 12/28/24 18:30 98 H 18 96 12/28/24 18:15 98 H 17 93 L 12/28/24 18:14 101 H 16 93 L 12/28/24 18:14 140/98 H 12/28/24 18:00 98 H 21 92 L 12/28/24 18:00 148/102 H 12/28/24 17:45 103 H 20 94 L 12/28/24 17:30 101 H 17 94 L 12/28/24 17:30 98.7 F 98 H 16 146/98 H 95 12/28/24 17:19 93 L 12/28/24 17:17 94 H 15 94 L 12/28/24 17:00 100 H 12/28/24 17:00 12/28/24 16:53 97.9 F 106 H 14 122/83 12/28/24 16:45 84 13 90 L 12/28/24 16:30 14 122/83 12/28/24 16:00 16 143/92 H 12/28/24 15:31 23 124/91 H 12/28/24 15:00 106 H 18 143/95 H 86 L 12/28/24 14:45 109 H 12 95 12/28/24 14:30 97 H 19 154/93 H 95 12/28/24 14:15 97 H 12 93 L 12/28/24 14:00 99 H 13 150/94 H 96 12/28/24 13:30 97.9 F 96 H 18 147/103 H 99 12/28/24 13:29 17 147/103 H O2 Del Method 12/29/24 08:00 12/29/24 08:00 12/29/24 07:58 12/29/24 07:58 12/29/24 07:45 12/29/24 07:30 12/29/24 07:15 12/29/24 07:00 12/29/24 07:00 12/29/24 06:55 Room Air 12/29/24 06:38 Room Air 12/29/24 06:30 12/29/24 06:00 12/29/24 05:15 12/29/24 05:00 12/29/24 04:01 12/29/24 04:00 12/29/24 03:00 12/29/24 02:31 Room Air 12/29/24 02:00 12/29/24 01:19 12/29/24 01:00 12/29/24 00:29 12/29/24 00:00 12/28/24 23:00 12/28/24 22:19 Room Air 12/28/24 22:15 12/28/24 22:00 12/28/24 21:45 12/28/24 21:21 12/28/24 21:00 Room Air 12/28/24 21:00 Room Air 12/28/24 20:45 Room Air 12/28/24 20:30 Room Air 12/28/24 20:00 Room Air 12/28/24 20:00 Room Air 12/28/24 19:45 12/28/24 19:00 Room Air 12/28/24 19:00 Room Air 12/28/24 19:00 Room Air 12/28/24 18:45 12/28/24 18:30 12/28/24 18:15 12/28/24 18:14 12/28/24 18:14 12/28/24 18:00 12/28/24 18:00 12/28/24 17:45 12/28/24 17:30 12/28/24 17:30 Room Air 12/28/24 17:19 Room Air 12/28/24 17:17 12/28/24 17:00 12/28/24 17:00 Room Air 12/28/24 16:53 Room Air 12/28/24 16:45 12/28/24 16:30 12/28/24 16:00 12/28/24 15:31 12/28/24 15:00 12/28/24 14:45 12/28/24 14:30 12/28/24 14:15 12/28/24 14:00 12/28/24 13:30 Room Air 12/28/24 13:29 Intake and Output 12/28/24 12/29/24 12/29/24 23:59 07:59 15:59 Intake Total 240 / 240 Output Total 450 / 450 500 / 500 Balance -210 / -210 -500 / -500 Intake: Intake, Oral Amount 240 / 240 Output: Output, Urine Amount 450 / 450 500 / 500 Other: Number of Unmeasured Voids 1 Weight 69.173 kg 70 kg Patient Weight 12/29/24 23:59 Weight 70 kg Laboratory Results - last 24 hr 12/28/24 08:56: Lactate 2.7 H 12/28/24 13:40: WBC 2.5 L, RBC 4.01 L, Hgb 14.4, Hct 40.3 L, MCV 100.5 H, MCH 35.9 H, MCHC 35.7 H, RDW 14.3, Plt Count 45 L*, MPV 11.8 H, Neut % (Auto) 31.1 L , Lymph % (Auto) 55.1 H, [place] % (Auto) 10.6 H, Eos % (Auto) 1.2, Baso % (Auto) 2.0, Neut # (Auto) 0.8 L*, Lymph # (Auto) 1.4, [place] # (Auto) 0.3, Eos # (Auto) 0.0, Baso # (Auto) 0.1, Total Counted 100, Neutrophils % (Manual) 30 L, Lymphocytes % (Manual) 54 H, Monocytes % (Manual) 13 H, Eosinophils % (Manual) 3, Platelet Estimate Marked decrease, Poikilocytosis 1+, Target Cells 1+, PT 10.3, INR 0.91, APTT 24.9, Sodium 137, Potassium 3.6, Chloride 99, Carbon Dioxide 29, Anion Gap 12.6, BUN 6 L, Creatinine 0.50 L, Estimated Creat Clear 174, Estimated GFR 177, Est GFR ( Amer) 215, Glucose 99, Calcium 8.8, Phosphorus 3.7, Magnesium 1.6, Total Bilirubin 1.4 H, AST 641 H*, ALT 191 H, Alkaline Phosphatase 204 H, Total Protein 7.4, Albumin 4.3, Globulin 3.1, Albumin/Globulin Ratio 1.4, Lipase 1778 H, Vitamin B12 860, Folate 3.11, Plasma/Serum Alcohol 398 H 12/28/24 14:12: VBG pH 7.40, VBG pCO2 41.4, VBG pO2 46.0 H, VBG HCO3 25.1, VBG Total CO2 26.3, VBG O2 Saturation 77.3 H, VBG Base Excess 0.3, VBG Lactic Acid 2.4 H 12/28/24 14:35: Urine Opiates Screen Negative, Urine Methadone Screen Negative, Ur Barbituates Screen Negative, Ur Phencyclidine Scrn Negative, Ur Amphetamines Screen Negative, U Benzodiazepines Scrn Negative, Urine Cocaine Screen Negative, U Marijuana (THC) Screen Negative 12/28/24 21:14: Lactate 2.0 12/29/24 06:39: WBC 2.3 L, RBC 4.00 L, Hgb 14.2, Hct 39.1 L, MCV 97.8 H, MCH 35.5 H, MCHC 36.3 H, RDW 13.6, Plt Count 40 L*, MPV 12.4 H, Neut % (Auto) 75.9, Lymph % (Auto) 15.9, [place] % (Auto) 3.9, Eos % (Auto) 2.1, Baso % (Auto) 1.3, Neut # (Auto) 1.8, Lymph # (Auto) 0.4 L, [place] # (Auto) 0.1, Eos # (Auto) 0.1, Baso # (Auto) 0.0, Sodium 130 L, Potassium 3.7, Chloride 95 L, Carbon Dioxide 26, Anion Gap 12.7, BUN 3 L D, Creatinine 0.40 L, Estimated Creat Clear 224, Estimated GFR 230, Est GFR ( Amer) 278 D, Glucose 165 H D, Calcium 8.8, Phosphorus 3.2, Magnesium 1.6, Total Bilirubin 2.3 H, AST 428 H* D, ALT 175 H, Alkaline Phosphatase 188 H, Total Protein 7.2, Albumin 4.3, Globulin 2.9, Albumin/Globulin Ratio 1.5 I & O for Labs for Last 24 Hours: Intake & Output 12/26/24 12/27/24 12/28/24 12/29/24 23:59 23:59 23:59 23:59 Intake Total 240 / 240 Output Total 450 / 450 500 / 500 Balance -210 / -210 -500 / -500 Weight 69.173 kg 70 kg Constitutional: Present moderate distress, thin, chronically ill appearing and cooperative Head: Present atraumatic and normocephalic ENT: Present normal exam Comment:: Scleral icterus Neck: Present normal inspection Respiratory: Present wheezes and normal respiratory effort; Absent rhonchi or crackles Cardiac: Present Regular Rhythm and Tachycardia GI: Present soft and normal bowel sounds; Absent distention or tenderness Extremities: Present normal inspection and full ROM Skin: Present intact and jaundice; Absent erythema Neuro: Present Weakness, Grossly Intact, alert, awake, oriented x 3 and moves all extremities Comment:: In bilateral upper extremities Assessment and Plan *Assessment and plan (1) Alcoholic hepatitis: Status: Acute Category: Medical Code(s): K70.10 - Alcoholic hepatitis without ascites (2) Delirium, withdrawal, alcoholic: Status: Acute Category: Medical Code(s): F10.931 - Alcohol use, unspecified with withdrawal delirium (3) Wernickes encephalopathy: Status: Acute Category: Medical Code(s): E51.2 - Wernicke's encephalopathy (4) Pancreatitis: Status: Acute Category: Medical Code(s): K85.90 - Acute pancreatitis without necrosis or infection, unspecified (5) Thrombocytopenia: Status: Acute Category: Medical Code(s): D69.6 - Thrombocytopenia, unspecified Plan 49-year-old male who presents with weakness and inability to walk. Found to have alcohol intoxication, alcoholic hepatitis, pancreatitis, concern for Wernicke's encephalopathy. Discussed case with ER physician, request admission for further management. I agreed to admit, admitted to ICU for further care. Patient high risk for decompensation. Monitor with seizure precautions. Will load with phenobarbital 130 mg IV once. Initiated on CIWA protocol. Problems addressed as follows: Alcohol intoxication with withdrawal Alcoholic hepatitis - Improvement in LFTs today, bilirubin 2.3, AST 428, ALT 175, alk phos 188. Albumin 4.3 -Denies abdominal pain. Repeat CBC, CMP, magnesium, phosphorus, lipase ordered for the morning -Continue CIWA protocol with Ativan due to hepatitis. Severe symptoms overnight. CIWA's up to 20. Increase phenobarbital to 130 mg twice daily. -Continue thiamine daily. Initiated on 500 mg IV once today. Continue 250 mg daily. Continue rally pack daily -Regular diet. -senior loss control specialist consulted -MELD score of 9; Maddrey's 1.4 on admission. No indication for steroids at this time. -Phosphorus 3.2, magnesium 1.6, potassium 3.7. Replace per protocol. Thrombocytopenia likely secondary to alcoholism and liver disease. Will monitor for improvement. High risk for bleeding. Holding anticoagulation. Continues to have low white count 2.3, hemoglobin 14.2. Platelets 40. No active signs of bleeding. Pantoprazole 40 mg IV nightly for GERD, Tums 500 milligrams as needed 4 times a day. Nicotine patch daily Full code Regular diet, monitor for pain and pancreatitis. Anticoagulation contraindicated due to thrombocytopenia
[2024-12-29] MEDS: FLUTICASONE/UMECLIDIN/VILANTER 100/62.5/25MCG INHALER 1 PUFF IH (10:16)
[2024-12-29] MEDS: THIAMINE HCL IV (10:16)
[2024-12-29] MEDS: SODIUM CHLORIDE 0.9% IV (10:16)
[2024-12-29] MEDS: LORazepam 2MG/ML VIAL 1 MG IV ×2 (10:54→19:42)
[2024-12-29] MEDS: LORazepam 1MG TABLET 1 MG PO (16:59)
[2024-12-29] MEDS: SODIUM CHLORIDE 0.9% 10ML VIAL 10 ML IV (20:21)
[2024-12-29] MEDS: PANTOPRAZOLE 40MG VIAL 40 MG IV (20:21)
[2024-12-30] VITALS (46 sets, daily range): BP systolic 105–140; BP diastolic 56–101; PULSE 64–120; RESP 13–25; TEMP 36.7–37.1; O2SAT 80–100; BMI 23.5
[2024-12-30] MEDS: LORazepam 2MG/ML VIAL 1 MG IV ×5 (01:35→14:05)
--- NOTE | 2024-12-30 06:36 | PC.NURSE ---
pt alert and oriented gets confused at times. pt has been resting most the night. Pts ciwa scores have been on the low end but at 0430 pts ciwa was a 12. pts iv had to be discontinued in the left ac due to leaking. a new iv was placed in the right forearm. meds given to help pts tremors. pt ciwa is a now a 4. pt is resting. pts family is at bedside.
--- NOTE | 2024-12-30 07:32 | P.PN_ITS ---
Subjective *Date: 12/30/24 *Time: 10:13 Interval history: Patient complaining of bilateral arm pain and soreness today. Stable on room air. No nausea or vomiting. Tolerated breakfast. Tremor somewhat improved this morning. CIWA scores variable overnight with scores overnight to this m orning of 11, 0, 12, 4. Due for CIWA scoring now. Medical Exam Vital signs and Labs for Last 24 Hours: Vital Signs Temp Pulse Pulse Resp BP Pulse Ox O2 Del Method 12/30/24 06:52 Nasal Cannula 12/30/24 06:52 103 H 18 114/65 98 Room Air 12/30/24 06:00 103 H 22 98 12/30/24 06:00 114/65 12/30/24 05:45 105 H 25 H 100 12/30/24 05:30 21 12/30/24 05:15 65 21 114/65 99 Room Air 12/30/24 05:01 64 80 L 12/30/24 05:01 123/90 12/30/24 05:00 64 83 L 12/30/24 05:00 Room Air 12/30/24 04:00 110 H 12/30/24 04:00 113 H 97 Room Air 12/30/24 04:00 113 H 20 123/90 97 Room Air 12/30/24 03:30 113 H 94 L 12/30/24 03:15 106 H 93 L 12/30/24 03:00 102 H 96 12/30/24 03:00 108/76 L 12/30/24 02:51 Room Air 12/30/24 02:51 98 H 18 135/89 96 Room Air 12/30/24 02:45 99 H 95 12/30/24 02:30 98.8 F 100 H 20 123/90 95 Room Air 12/30/24 02:15 106 H 95 12/30/24 02:00 135/89 12/30/24 02:00 105 H 96 12/30/24 01:45 113 H 95 12/30/24 01:30 110 H 96 12/30/24 01:15 119 H 135/89 97 Room Air 12/30/24 01:00 Room Air 12/30/24 01:00 115/75 12/30/24 01:00 112 H 97 12/30/24 00:45 107 H 95 12/30/24 00:30 114 H 115/75 97 Room Air 12/30/24 00:15 98.7 F 114 H 20 125/81 96 Room Air 12/30/24 00:01 110 H 12/30/24 00:00 120 H 21 94 L 12/30/24 00:00 125/81 12/30/24 00:00 106 H 94 L Room Air 12/29/24 23:45 106 H 19 93 L 12/29/24 23:30 18 12/29/24 23:20 35 L 125/81 100 Room Air 12/29/24 23:00 Room Air 12/29/24 23:00 110 H 95 12/29/24 23:00 139/95 H 12/29/24 22:45 115 H 93 L 12/29/24 22:30 119 H 95 12/29/24 22:15 124 H 139/95 H 96 Room Air 12/29/24 22:01 146/87 H 12/29/24 22:01 106 H 96 12/29/24 22:00 100 H 93 L 12/29/24 21:45 99 H 94 L 12/29/24 21:30 113 H 95 12/29/24 21:15 105 H 16 146/87 H 97 Room Air 12/29/24 21:00 Nasal Cannula 12/29/24 21:00 114/70 12/29/24 21:00 105 H 94 L 12/29/24 20:45 105 H 18 95 12/29/24 20:30 105 H 19 93 L 12/29/24 20:15 105 H 17 129/81 95 Room Air 12/29/24 20:02 100 H 12/29/24 20:00 103 H 17 93 L 12/29/24 20:00 129/81 12/29/24 19:50 102 H 93 L Room Air 12/29/24 19:50 101 H 18 122/80 93 L Room Air 12/29/24 19:45 103 H 17 96 12/29/24 19:30 103 H 18 96 12/29/24 19:15 98.0 F 128 H 21 122/80 95 12/29/24 19:00 122 H 20 95 12/29/24 19:00 122/80 12/29/24 18:45 117 H 20 94 L 12/29/24 18:30 107 H 19 94 L 12/29/24 18:15 114 H 22 122/80 94 L 12/29/24 18:00 108/69 L 12/29/24 18:00 111 H 19 94 L 12/29/24 17:45 125 H 23 94 L 12/29/24 17:30 122 H 15 95 12/29/24 17:15 107 H 17 93 L 12/29/24 17:00 Room Air 12/29/24 17:00 150/109 H 12/29/24 17:00 116 H 21 92 L 12/29/24 16:45 98 H 18 90 L 12/29/24 16:00 Room Air 12/29/24 16:00 99 H 12/29/24 16:00 100 H 16 133/78 93 L Room Air 12/29/24 15:00 99 H 140/95 H 94 L Room Air 12/29/24 15:00 Room Air 12/29/24 14:00 98 H 16 120/78 92 L Room Air 12/29/24 13:15 101 H 18 113/74 91 L Room Air 12/29/24 13:00 Room Air 12/29/24 12:00 107 H Room Air 12/29/24 12:00 108 H 12/29/24 12:00 99.3 F 101 H 20 133/80 91 L 12/29/24 11:00 Room Air 12/29/24 11:00 98.2 F 117 H 21 145/96 H 92 L 12/29/24 10:15 115 H 21 90 L 12/29/24 10:00 115 H 19 92 L 12/29/24 10:00 158/102 H 12/29/24 09:45 132 H 24 92 L 12/29/24 09:30 121 H 22 91 L 12/29/24 09:15 120 H 21 91 L 12/29/24 09:00 Room Air 12/29/24 09:00 136 H 90 L 12/29/24 08:00 121 H Room Air 12/29/24 08:00 121 H 12/29/24 08:00 163/108 H 12/29/24 08:00 20 12/29/24 07:58 17 12/29/24 07:58 124 H 18 156/102 H 12/29/24 07:45 20 O2 Flow Rate 12/30/24 06:52 2 12/30/24 06:52 12/30/24 06:00 12/30/24 06:00 12/30/24 05:45 12/30/24 05:30 12/30/24 05:15 12/30/24 05:01 12/30/24 05:01 12/30/24 05:00 12/30/24 05:00 12/30/24 04:00 12/30/24 04:00 12/30/24 04:00 12/30/24 03:30 12/30/24 03:15 12/30/24 03:00 12/30/24 03:00 12/30/24 02:51 12/30/24 02:51 12/30/24 02:45 12/30/24 02:30 12/30/24 02:15 12/30/24 02:00 12/30/24 02:00 12/30/24 01:45 12/30/24 01:30 12/30/24 01:15 12/30/24 01:00 12/30/24 01:00 12/30/24 01:00 12/30/24 00:45 12/30/24 00:30 12/30/24 00:15 12/30/24 00:01 12/30/24 00:00 12/30/24 00:00 12/30/24 00:00 12/29/24 23:45 12/29/24 23:30 12/29/24 23:20 12/29/24 23:00 12/29/24 23:00 12/29/24 23:00 12/29/24 22:45 12/29/24 22:30 12/29/24 22:15 12/29/24 22:01 12/29/24 22:01 12/29/24 22:00 12/29/24 21:45 12/29/24 21:30 12/29/24 21:15 12/29/24 21:00 12/29/24 21:00 12/29/24 21:00 12/29/24 20:45 12/29/24 20:30 12/29/24 20:15 12/29/24 20:02 12/29/24 20:00 12/29/24 20:00 12/29/24 19:50 12/29/24 19:50 12/29/24 19:45 12/29/24 19:30 12/29/24 19:15 12/29/24 19:00 12/29/24 19:00 12/29/24 18:45 12/29/24 18:30 12/29/24 18:15 12/29/24 18:00 12/29/24 18:00 12/29/24 17:45 12/29/24 17:30 12/29/24 17:15 12/29/24 17:00 12/29/24 17:00 12/29/24 17:00 12/29/24 16:45 12/29/24 16:00 12/29/24 16:00 12/29/24 16:00 12/29/24 15:00 12/29/24 15:00 12/29/24 14:00 12/29/24 13:15 12/29/24 13:00 12/29/24 12:00 12/29/24 12:00 12/29/24 12:00 12/29/24 11:00 12/29/24 11:00 12/29/24 10:15 12/29/24 10:00 12/29/24 10:00 12/29/24 09:45 12/29/24 09:30 12/29/24 09:15 12/29/24 09:00 12/29/24 09:00 12/29/24 08:00 12/29/24 08:00 12/29/24 08:00 12/29/24 08:00 12/29/24 07:58 12/29/24 07:58 12/29/24 07:45 Intake and Output 12/29/24 12/29/24 12/30/24 15:59 23:59 07:59 Intake Total 180 / 1532 1352 / 1532 Output Total 150 / 850 200 / 850 0 / 0 Balance 30 / 682 1152 / 682 0 / 0 Intake: Intake, Oral Amount 180 / 300 120 / 300 Intake, Total IV Amount 1232 / 1232 Magnesium Sulfate 2 gm Thiamine 1024 / 1024 HCl 100 mg Mvi, Adult No.1 with Vit K 10 ml In Lactated Ringers 1000ML 1,000 ml @ 333 mls/hr IV DAILY [facility] Rx#: [id number] Thiamine HCl 200 mg In 0.9 % 208 / 208 Sodium Chloride 50 ml @ 208 mls /hr IV 1100 [facility] Rx#:[id number] Output: Output, Urine Amount 150 / 850 200 / 850 0 / 0 Other: Number of Unmeasured Voids 1 1 Number of Bowel Movements 1 Weight 70.488 kg Patient Weight 12/30/24 23:59 Weight 70.488 kg I & O for Labs for Last 24 Hours: Intake & Output 12/27/24 12/28/24 12/29/24 12/30/24 23:59 23:59 23:59 23:59 Intake Total 240 / 240 1532 / 1532 Output Total 450 / 450 850 / 850 0 / 0 Balance -210 / -210 682 / 682 0 / 0 Weight 69.173 kg 70 kg 70.488 kg Constitutional: Present moderate distress, thin, chronically ill appearing and cooperative Head: Present atraumatic and normocephalic ENT: Present normal exam Comment:: Scleral icterus Neck: Present normal inspection Respiratory: Present wheezes and normal respiratory effort; Absent rhonchi or crackles Cardiac: Present Regular Rhythm and Tachycardia GI: Present soft and normal bowel sounds; Absent distention or tenderness Extremities: Present normal inspection and full ROM Skin: Present intact and jaundice; Absent erythema Neuro: Present Weakness, Grossly Intact, alert, awake, oriented x 3 and moves all extremities Comment:: Tremor in bilateral upper extremities Assessment and Plan *Assessment and plan (1) Alcoholic hepatitis: Status: Acute Category: Medical Code(s): K70.10 - Alcoholic hepatitis without ascites (2) Delirium, withdrawal, alcoholic: Status: Acute Category: Medical Code(s): F10.931 - Alcohol use, unspecified with withdrawal delirium (3) Wernickes encephalopathy: Status: Acute Category: Medical Code(s): E51.2 - Wernicke's encephalopathy (4) Pancreatitis: Status: Acute Category: Medical Code(s): K85.90 - Acute pancreatitis without necrosis or infection, unspecified (5) Thrombocytopenia: Status: Acute Category: Medical Code(s): D69.6 - Thrombocytopenia, unspecified Plan 49-year-old male who presents with weakness and inability to walk. Found to have alcohol intoxication, alcoholic hepatitis, pancreatitis, concern for Wernicke's encephalopathy. Discussed case with ER physician, request admission for further management. I agreed to admit, admitted to ICU for further care. Patient high risk for decompensation. Monitor with seizure precautions. Loaded with phenobarbital, continuing twice daily. Continuing CIWA protocol. Consulted GI to evaluate in the morning due to his hepatitis and likely cirrhosis needing follow-up as an outpatient. Problems addressed as follows: Alcohol intoxication, resolved Alcohol withdrawal, improving Alcoholic hepatitis/pancreatitis -LFTs improving with bilirubin 2.0, AST 275, ALT 147, alk phos 144. Phosphorus 2.7 and magnesium 2.1, potassium low at 2.8. Replacing per protocol. -Lipase remains elevated at 1296 - Repeat CBC, CMP, magnesium, phosphorus ordered for the morning -Continue CIWA protocol with Ativan due to hepatitis. Symptoms showing some improvement, see was no higher than 12 overnight. Continue phenobarbital 130 mg twice daily for at least another 24 hours, reevaluate tomorrow and consider weaning to 65 mg twice daily. -Continue thiamine daily. Initiated on 500 mg IV once today. Continue 250 mg daily. Continue rally pack daily -Regular diet. -ultrasound applications specialist consulted -MELD score of 9; Maddrey's 1.4 on admission. No indication for steroids at this time. Thrombocytopenia likely secondary to alcoholism and liver disease. Will monitor for improvement. High risk for bleeding. Holding anticoagulation. Continues to have low white count 3.2, hemoglobin 13.6, no active signs of bleeding. Platelets 40. Pantoprazole 40 mg IV nightly for GERD, Tums 500 milligrams as needed 4 times a day. Nicotine patch daily Full code Regular diet, monitor for pain and pancreatitis. Anticoagulation contraindicated due to thrombocytopenia
[2024-12-30 07:43] LABS: Basophils % 0.9 % (0.1-2.0); Eosinophils % 0.6 % (0.1-12.0); Hematocrit 38.8 % (42.0-52.0); Hemoglobin 13.6 g/dL (14.1-18.0); Lymphocytes % 31.8 % (10-50); Mean Corpuscular HGB Conc 35.1 g/dL (31.8-35.4); Mean Corpuscular Hemoglobin 35.2 pg (27.0-31.2); Mean Corpuscular Volume 100.5 fl (80-94); Mean Platelet Volume 11.7 fl (7.4-10.4); Monocytes # 0.3 K/mm3 (0.1-1.0); Monocytes % 8.8 % (1.7-9.3); Neutrophils # 1.8 K/mm3 (1.8-7.8); Neutrophils % 57.6 % (37.0-80.0); Red Blood Count 3.86 M/mm3 (4.60-6.20); Red Cell Distribution Width 13.6 % (11.5-17.5); White Blood Count 3.2 K/mm3 (4.8-10.8)
[2024-12-30 07:44] LABS: Platelet Count 40 K/mm3 (142-424)
[2024-12-30 07:56] LABS: Alanine Aminotransferase 147 U/L (12-78); Albumin/Globulin Ratio 1.5 (1.1-1.8); Alkaline Phosphatase 144 U/L (38-126); Anion Gap 9.8 mEq/L (5-15); Aspartate Amino Transferase 275 U/L (17-59); Blood Urea Nitrogen 4 mg/dl (9-20); Calcium 9.7 mg/dl (8.4-10.2); Carbon Dioxide 27 mmol/L (22.0-30.0); Chloride 96 mmol/L (98-107); Creatinine Clearance Estimated 180 mL/min (50-200); Estimated Glomerular Filt Rate 177 ml/min (>60); GFR (African American) 215 ML/MIN (>60); Globulin 2.7 g/dL (1.3-3.2); Glucose 138 mg/dl (74-100); Magnesium 2.1 mg/dl (1.6-2.3); Phosphorous 2.7 mg/dl (2.5-4.5); Sodium 130 mmol/L (136-145); Total Protein,Serum 6.7 g/dl (6.3-8.2)
[2024-12-30 07:57] LABS: Potassium 2.8 mmoL/L (3.5-5.1)
[2024-12-30 08:00] LABS: Lipase 1296 U/L (23-300)
[2024-12-30] MEDS: FOLIC ACID 1MG TABLET 1 MG PO (08:25)
[2024-12-30] MEDS: METOPROLOL TARTRATE 25MG TABLET 25 MG PO ×2 (08:25→20:08)
[2024-12-30] MEDS: PHENobarbital SOD 130MG/ML INJ 130 MG IV ×2 (08:27→20:08)
[2024-12-30] MEDS: NICOTINE 21MG/24HR PATCH 21 MG TD (08:27)
[2024-12-30] MEDS: MAGNESIUM SULFATE 2 GM, THIAMINE HCL 100 MG, MVI, ADULT NO.1 WITH VIT K 10 ML in LACTAT... IV (08:39)
[2024-12-30] MEDS: FLUTICASONE/UMECLIDIN/VILANTER 100/62.5/25MCG INHALER 1 PUFF IH (08:56)
[2024-12-30] MEDS: ACETAMINOPHEN 325MG TAB 650 MG PO (10:11)
[2024-12-30] MEDS: THIAMINE HCL IV (11:20)
[2024-12-30] MEDS: SODIUM CHLORIDE 0.9% IV (11:20)
--- NOTE | 2024-12-30 11:40 | PC.NURSE ---
1140 - Witnessed fall by family while pt was on BSC. Nursing staff behind curtain per pt's request. Pt fell to knees and then to butt. No visible injury. Pt and family denies him hitting his head or LOC. Pt assisted to sitting position and assessed. notified at 1142, as well as warehouse shift supervisor. states to just closely monitor. Pt then cleaned up and assisted back to bed. Call botello w/in reach. Bed in lowest locked position. Bed alarm in place. Family remains at bedside.
[2024-12-30] MEDS: POTASSIUM CHLORIDE 20MEQ TAB 40 MEQ PO ×3 (16:00→23:41)
[2024-12-30] MEDS: SODIUM CHLORIDE 0.9% 10ML VIAL 10 ML IV (20:08)
[2024-12-30] MEDS: PANTOPRAZOLE 40MG VIAL 40 MG IV (20:08)
[2024-12-30] MEDS: LORazepam 1MG TABLET 1 MG PO (20:28)
--- NOTE | 2024-12-30 20:46 | PC.NURSE ---
Pt bathed at this time. New gown and socks put on. Hair and teeth brushed. Jerrica care completed. Butt paste, deodorant, and lotion applied. Pt up to BSC X2 assist.
[2024-12-31] VITALS (13 sets, daily range): BP systolic 105–158; BP diastolic 64–93; PULSE 44–103; RESP 15–21; TEMP 36.4–36.7; O2SAT 90–99; BMI 23.5
[2024-12-31] MEDS: LORazepam 1MG TABLET 1 MG PO ×3 (04:12→22:18)
[2024-12-31] MEDS: FLUTICASONE/UMECLIDIN/VILANTER 100/62.5/25MCG INHALER 1 PUFF IH (06:13)
[2024-12-31 06:32] LABS: Basophils % 1.1 % (0.1-2.0); Eosinophils % 1.4 % (0.1-12.0); Hematocrit 37.5 % (42.0-52.0); Hemoglobin 12.7 g/dL (14.1-18.0); Lymphocytes # 1.1 K/mm3 (0.7-4.5); Lymphocytes % 37.6 % (10-50); Mean Corpuscular HGB Conc 33.9 g/dL (31.8-35.4); Mean Corpuscular Volume 103.3 fl (80-94); Mean Platelet Volume 13.5 fl (7.4-10.4); Monocytes # 0.3 K/mm3 (0.1-1.0); Monocytes % 9.6 % (1.7-9.3); Neutrophils # 1.4 K/mm3 (1.8-7.8); Neutrophils % 49.9 % (37.0-80.0); Red Blood Count 3.63 M/mm3 (4.60-6.20); White Blood Count 2.8 K/mm3 (4.8-10.8)
[2024-12-31 06:42] LABS: Alanine Aminotransferase 130 U/L (12-78); Albumin Level 3.5 g/dl (3.5-5.0); Albumin/Globulin Ratio 1.3 (1.1-1.8); Alkaline Phosphatase 119 U/L (38-126); Anion Gap 10.6 mEq/L (5-15); Aspartate Amino Transferase 220 U/L (17-59); Bilirubin,Total 1.3 mg/dl (0.2-1.3); Blood Urea Nitrogen 4 mg/dl (9-20); Calcium 9.9 mg/dl (8.4-10.2); Carbon Dioxide 23 mmol/L (22.0-30.0); Chloride 103 mmol/L (98-107); Creatinine Clearance Estimated 180 mL/min (50-200); Estimated Glomerular Filt Rate 177 ml/min (>60); GFR (African American) 215 ML/MIN (>60); Globulin 2.7 g/dL (1.3-3.2); Glucose 124 mg/dl (74-100); Potassium 3.6 mmoL/L (3.5-5.1); Sodium 133 mmol/L (136-145); Total Protein,Serum 6.2 g/dl (6.3-8.2)
[2024-12-31 06:46] LABS: Platelet Count 49 K/mm3 (142-424)
--- NOTE | 2024-12-31 06:46 | PC.NURSE ---
notified Jimmy JAVIER of critical plt count 49
[2024-12-31 07:03] LABS: Magnesium 1.8 mg/dl (1.6-2.3); Phosphorous 2.9 mg/dl (2.5-4.5)
--- NOTE | 2024-12-31 07:50 | P.PN_ITS ---
Subjective *Date: 12/31/24 *Time: 11:53 Interval history: CIWA score showing improvement. Down to fives and sixes overnight. Tolerating p.o. intake. Less tremulous on exam today. Patient's arms are less sore. Complaining of his eyes burning. Having some loose stools. Medical Exam Vital signs and Labs for Last 24 Hours: Vital Signs Temp Pulse Pulse Resp BP Pulse Ox O2 Del Method 12/31/24 07:03 158/81 H 12/31/24 07:03 44 L 15 90 L Nasal Cannula 12/31/24 07:00 Room Air 12/31/24 06:00 126/88 12/31/24 06:00 103 H 21 97 Room Air 12/31/24 05:00 134/87 12/31/24 05:00 90 21 97 Room Air 12/31/24 05:00 Room Air 12/31/24 04:00 141/93 H 12/31/24 04:00 98.0 F 20 95 Room Air 12/31/24 04:00 90 95 Room Air 12/31/24 04:00 90 12/31/24 03:00 120/80 12/31/24 03:00 85 19 94 L 12/31/24 03:00 Room Air 12/31/24 02:00 19 12/31/24 02:00 105/68 L 12/31/24 01:00 81 19 97 12/31/24 01:00 109/64 L Room Air 12/31/24 01:00 Room Air 12/31/24 00:00 83 17 95 12/31/24 00:00 116/83 Room Air 12/31/24 00:00 90 96 Room Air 12/31/24 00:00 90 12/30/24 23:00 122/86 12/30/24 23:00 18 Room Air 12/30/24 22:49 Room Air 12/30/24 22:00 86 18 96 Room Air 12/30/24 22:00 105/77 L 12/30/24 21:00 94 H 18 92 L 12/30/24 21:00 135/86 12/30/24 20:43 Room Air 12/30/24 20:00 100 H 12/30/24 20:00 102 H 96 Room Air 12/30/24 20:00 119 H 20 120/84 95 Room Air 12/30/24 19:00 98 H 18 98 12/30/24 19:00 111/75 12/30/24 18:43 100 H 19 140/89 94 L Room Air 12/30/24 18:42 Room Air 12/30/24 18:00 100 H 16 134/96 H 96 Room Air 12/30/24 17:00 82 16 105/56 L 99 Room Air 12/30/24 17:00 Room Air 12/30/24 16:55 98.5 F 12/30/24 16:00 79 12/30/24 16:00 78 13 132/76 91 L Room Air 12/30/24 15:00 78 13 115/76 97 Room Air 12/30/24 15:00 Room Air 12/30/24 14:00 90 18 106/57 L 98 Room Air 12/30/24 13:00 Room Air 12/30/24 12:45 84 18 107/79 L 95 Room Air 12/30/24 12:00 76 12/30/24 12:00 96 Room Air 12/30/24 12:00 98.0 F 77 16 123/81 95 Room Air 12/30/24 11:12 78 16 119/85 96 Room Air 12/30/24 11:00 84 15 134/101 H 99 Room Air 12/30/24 11:00 Room Air 12/30/24 10:43 90 22 140/79 95 Room Air 12/30/24 10:00 21 130/93 H Room Air 12/30/24 09:00 82 24 133/79 94 L Room Air 12/30/24 09:00 Room Air 12/30/24 08:01 98.7 F 117 H 24 118/84 90 L Room Air 12/30/24 08:00 110 H 94 L Room Air 12/30/24 08:00 119 H O2 Flow Rate 12/31/24 07:03 12/31/24 07:03 2 12/31/24 07:00 12/31/24 06:00 12/31/24 06:00 12/31/24 05:00 12/31/24 05:00 12/31/24 05:00 12/31/24 04:00 12/31/24 04:00 12/31/24 04:00 12/31/24 04:00 12/31/24 03:00 12/31/24 03:00 12/31/24 03:00 12/31/24 02:00 12/31/24 02:00 12/31/24 01:00 12/31/24 01:00 12/31/24 01:00 12/31/24 00:00 12/31/24 00:00 12/31/24 00:00 12/31/24 00:00 12/30/24 23:00 12/30/24 23:00 12/30/24 22:49 12/30/24 22:00 12/30/24 22:00 12/30/24 21:00 12/30/24 21:00 12/30/24 20:43 12/30/24 20:00 12/30/24 20:00 12/30/24 20:00 12/30/24 19:00 12/30/24 19:00 12/30/24 18:43 12/30/24 18:42 12/30/24 18:00 12/30/24 17:00 12/30/24 17:00 12/30/24 16:55 12/30/24 16:00 12/30/24 16:00 12/30/24 15:00 12/30/24 15:00 12/30/24 14:00 12/30/24 13:00 12/30/24 12:45 12/30/24 12:00 12/30/24 12:00 12/30/24 12:00 12/30/24 11:12 12/30/24 11:00 12/30/24 11:00 12/30/24 10:43 12/30/24 10:00 12/30/24 09:00 12/30/24 09:00 12/30/24 08:01 12/30/24 08:00 12/30/24 08:00 Intake and Output 12/30/24 12/30/24 12/31/24 15:59 23:59 07:59 Intake Total 1529 Output Total 500 / 500 0 / 500 0 / 0 Balance 1030 / 1510 240 / 1510 0 / 0 Intake: Intake, Oral Amount 480 / 960 240 / 960 Intake, Total IV Amount 1050 / 1050 Magnesium Sulfate 2 gm Thiamine 1000 / 1000 HCl 100 mg Mvi, Adult No.1 with Vit K 10 ml In Lactated Ringers 1000ML 1,000 ml @ 333 mls/hr IV DAILY [facility] Rx#: [id number] Thiamine HCl 200 mg In 0.9 % 50 / 50 Sodium Chloride 50 ml @ 208 mls /hr IV 1100 [facility] Rx#:[id number] Output: Output, Urine Amount 500 / 500 0 / 500 0 / 0 Other: Number of Voids 1 Number of Unmeasured Voids 1 1 1 Number of Bowel Movements 1 1 1 Weight 70.307 kg Patient Weight 12/31/24 23:59 Weight 70.307 kg Laboratory Results - last 24 hr 12/30/24 07:05: Sodium 130 L, Potassium 2.8 L* D, Chloride 96 L, Carbon Dioxide 27, Anion Gap 9.8, BUN 4 L D, Creatinine 0.50 L D, Estimated Creat Clear 180, Estimated GFR 177, Est GFR ( Amer) 215 D, Glucose 138 H, Calcium 9.7, Phosphorus 2.7, Magnesium 2.1 D, Total Bilirubin 2.0 H, AST 275 H D, ALT 147 H, Alkaline Phosphatase 144 H, Total Protein 6.7, Albumin 4.0, Globulin 2.7, Albumin/Globulin Ratio 1.5, Lipase 1296 H 12/31/24 05:20: WBC 2.8 L, RBC 3.63 L, Hgb 12.7 L, Hct 37.5 L, MCV 103.3 H, MCH 35.0 H, MCHC 33.9, RDW 14.0, Plt Count 49 L*, MPV 13.5 H, Neut % (Auto) 49.9, Lymph % (Auto) 37.6, [place] % (Auto) 9.6 H, Eos % (Auto) 1.4, Baso % (Auto) 1.1, Neut # (Auto) 1.4 L, Lymph # (Auto) 1.1, [place] # (Auto) 0.3, Eos # (Auto) 0.0, Baso # (Auto) 0.0, Sodium 133 L, Potassium 3.6 D, Chloride 103, Carbon Dioxide 23, Anion Gap 10.6, BUN 4 L, Creatinine 0.50 L, Estimated Creat Clear 180, Estimated GFR 177, Est GFR ( Amer) 215, Glucose 124 H, Calcium 9.9, Phosphorus 2.9, Magnesium 1.8 D, Total Bilirubin 1.3, AST 220 H, ALT 130 H, Alkaline Phosphatase 119, Total Protein 6.2 L, Albumin 3.5 D, Globulin 2.7, Albumin/Globulin Ratio 1.3 I & O for Labs for Last 24 Hours: Intake & Output 12/28/24 12/29/24 12/30/24 12/31/24 23:59 23:59 23:59 23:59 Intake Total 240 / 240 1532 / 1532 2009 Output Total 450 / 450 850 / 850 500 / 500 0 / 0 Balance -210 / -210 682 / 682 1510 / 1510 0 / 0 Weight 69.173 kg 70 kg 70.488 kg 70.307 kg Microbiology Reports for the Last 24 Hours: Microbiology 12/28/24 17:00 Anus CRE Surveillance Culture - Final Constitutional: Present mild distress, thin, chronically ill appearing and cooperative Head: Present atraumatic and normocephalic Eyes: Present eye discharge ENT: Present normal exam Comment:: Scleral icterus Neck: Present normal inspection Respiratory: Present wheezes and normal respiratory effort; Absent rhonchi or crackles Cardiac: Present Regular Rhythm and Tachycardia GI: Present soft and normal bowel sounds; Absent distention or tenderness Extremities: Present normal inspection and full ROM Skin: Present intact and jaundice; Absent erythema Neuro: Present Weakness, Grossly Intact, alert, awake, oriented x 3 and moves all extremities Comment:: Tremor in bilateral upper extremities improving Assessment and Plan *Assessment and plan (1) Alcoholic hepatitis: Status: Acute Category: Medical Code(s): K70.10 - Alcoholic hepatitis without ascites (2) Delirium, withdrawal, alcoholic: Status: Acute Category: Medical Code(s): F10.931 - Alcohol use, unspecified with withdrawal delirium (3) Wernickes encephalopathy: Status: Acute Category: Medical Code(s): E51.2 - Wernicke's encephalopathy (4) Pancreatitis: Status: Acute Category: Medical Code(s): K85.90 - Acute pancreatitis without necrosis or infection, unspecified (5) Thrombocytopenia: Status: Acute Category: Medical Code(s): D69.6 - Thrombocytopenia, unspecified Plan 49-year-old male who presents with weakness and inability to walk. Found to have alcohol intoxication, alcoholic hepatitis, pancreatitis, concern for Wernicke's encephalopathy. Discussed case with ER physician, request admission for further management. I agreed to admit, admitted to ICU for further care. Patient high risk for decompensation. Monitor with seizure precautions. Diamond cisnerosg phenobarbital to 65 mg twice daily. Continue CIWA protocol. De-escalate to MedSurg. GI evaluating today. Problems addressed as follows: Alcohol intoxication, resolved Alcohol withdrawal, improving Alcoholic hepatitis/pancreatitis -LFTs improving with bilirubin 1.3, AST 220, ALT 130, alk phos 119. Phosphorus 2.9, magnesium 1.8, potassium 3.6. Replacing per protocol. - Repeat CBC, CMP, magnesium, phosphorus ordered for the morning -Continue CIWA protocol with Ativan due to hepatitis. Symptoms showing some improvement, see was no higher than 6 overnight. Continue phenobarbital dec reased to 65 mg twice daily. -Continue thiamine daily. Transition to 100 mg oral daily. Transition to oral multivitamin. Discontinue rally pack's. -Regular diet. -senior tax specialist consulted -MELD score of 9; Maddrey's 1.4 on admission. No indication for steroids at this time. Cirrhosis Thrombocytopenia - likely secondary to alcoholism and liver disease. Will monitor for improvement. High risk for bleeding. Holding anticoagulation. White count 2.8, platelets 49, hemoglobin 12.7. Repeat INR ordered for the morning. -GI consulted and evaluating today. Appreciate their recommendations Pantoprazole 40 mg IV nightly for GERD, Tums 500 milligrams as needed 4 times a day. Nicotine patch daily Full code Regular diet, monitor for pain and pancreatitis. Anticoagulation contraindicated due to thrombocytopenia
[2024-12-31] MEDS: MAGNESIUM SULFATE 2 GM, THIAMINE HCL 100 MG, MVI, ADULT NO.1 WITH VIT K 10 ML in LACTAT... IV (08:05)
[2024-12-31] MEDS: FOLIC ACID 1MG TABLET 1 MG PO (08:05)
[2024-12-31] MEDS: METOPROLOL TARTRATE 25MG TABLET 25 MG PO ×2 (08:05→21:36)
[2024-12-31] MEDS: PHENobarbital SOD 65MG/ML INJ 65 MG IV ×2 (08:06→21:38)
--- NOTE | 2024-12-31 09:45 | PC.NURSE ---
PT/ OT at bedside. pt ambulated with staff around the unit with 2 assist. tolerated well
--- NOTE | 2024-12-31 10:00 | PC.NURSE ---
put pt on bedside, told to let me know when finished to help him back in bed. Pt. got up and got back in bed and refused to call out so I could help him back in bed.
--- NOTE | 2024-12-31 10:05 | HMH.OTEV ---
OT Inpatient Evaluation Rehab OT IP Evaluation Start: 12/31/24 08:53 Freq: ONCE Status: Active Protocol: Document 12/31/24 09:42 NEFTALI (Rec: 12/31/24 10:05 NEFTALI [id number]) Rehab OT IP Assessment Subjective History Mr. Hayward is a 49-year- old male who drinks daily. Presented to the ER because of inability to walk or get around without support for the past couple of weeks. Had pneumonia couple weeks ago but has not gotten any better. Family at bedside states he has had increased yellowing of his eyes and darkening of his skin. Has fallen and bruised easily. States he drinks about 15 beers a day along with liquor. Last drink was this morning. His weakness and inability to walk is what led to him coming to the ER for evaluation. Denies chest pain, nausea, abdominal pain. Does complain of some heartburn. Afebrile. Alert and oriented x 3. Able to give history. Interested in stopping drinking. Workup in the ER concerning for Wernicke 's encephalopathy with nystagmus and tremor along with confusion. Alcohol level 390. Platelets 48. Lipase elevated along with elevation of liver enzymes. Has had withdrawals and seizures in the past. Medicine consulted for admission and management of alcoholic hepatitis and pancreatitis. Patient admitted to ICU due to high risk for seizures and decompensation. On evaluation , he appears grossly jaundiced . Has present tremor. Able to answer questions appropriately. Very anxious. Tachycardic on evaluation. No significant abdominal pain on exam. States he eats 1 good meal a day, otherwise drinks continuously. Subjective I want to get up. Instructed patient on proper hand and foot placement to complete bed mobility from supine->sit @ EOB->ambulate requiring Mod A x2. Patient maneuver ~50ft within facility with MOd A x2. Assisted Patient back to bed with Min A . Objective Patient Orientation Person,Place,Name,Age Right Upper Extremity Gross ROM WFL Left Upper Extremity Gross ROM WFL Bed Mobility bed mobility - supine/sit Assist Level Minimal x 1 (25% assist) Transfer Training Sit/Stand/Step Transfer,Sit/ Stand/Pivot Transfer Assist Level Moderate x 2 (50% assist) Chair Transfer Ability Moderate x 2 (50% assist) Rehab OT IP prob,goals,plan Problems Date of Evaluation: 12/31/24 OT IP Problems Bed Mobility,Transfers,Balance ,Self care,Safety Rehab Potential Rehab Potential Good Equipment Needs Assistive Devices Rolling / Wheeled Walker Plan OT intervention Plan Bed Mobility,Transfers,Balance ,Self care,Safety,Therapeutic Exercise OT Plan Frequency Daily Duration LOS Discharge Goals Bed Mobility Ability Assistance x1 Sit to Stand Chair Transfer Ability Moderate x 1 (50% assist) Chair Transfer Ability Moderate x 1 (50% assist) Chair Transfer Technique Sit to/from Ambulatory Chair Transfer Assistive Devices None Discharge Plan OT Discharge Plan Recommend placement at this time. Patient is very unsteady during OOB tasks with needing Mod A x2 to maneuver throughout facility safely. Patient LOB x2 during OOB tasks with needing support to prevent from falling. Patient to continue skilled OT services while here at [facility]. Eval Complexity Eval Charge Codes 94131 - Low Complexity PHYSICIAN CERTIFICATION: I certify the specified therapy services for Nirmal Hayward are required, authorized, and reviewed every 30 days.
--- NOTE | 2024-12-31 10:50 | PC.NURSE ---
arrived by w/c from ICU
--- NOTE | 2024-12-31 11:28 | HMH.PTEV ---
Physical Therapy Evaluation Rehab PT IP Evaluation Start: 12/28/24 17:50 Freq: ONCE Status: Active Protocol: Document 12/31/24 11:24 ROBINSON (Rec: 12/31/24 11:28 PHORNE [id number]) Subjective/History History History 49-year-old male who drinks daily. Presented to the ER because of inability to walk or get around without support for the past couple of weeks. Had pneumonia couple weeks ago but has not gotten any better. Family at bedside states he has had increased yellowing of his eyes and darkening of his skin. Has fallen and bruised easily. States he drinks about 15 beers a day along with liquor. Last drink was this morning. His weakness and inability to walk is what led to him coming to the ER for evaluation. Denies chest pain , nausea, abdominal pain. Does complain of some heartburn. Afebrile. Alert and oriented x 3. Able to give history. Interested in stopping drinking. Workup in the ER concerning for Wernicke 's encephalopathy with nystagmus and tremor along with confusion. Alcohol level 390. Platelets 48. Lipase elevated along with elevation of liver enzymes. Has had withdrawals and seizures in the past. Medicine consulted for admission and management of alcoholic hepatitis and pancreatitis. Patient admitted to ICU due to high risk for seizures and decompensation. On evaluation , he appears grossly jaundiced . Has present tremor. Able to answer questions appropriately. Very anxious. Tachycardic on evaluation. No significant abdominal pain on exam. States he eats 1 good meal a day, otherwise drinks continuously. Subjective Subjective Pt presents awake, supine, agrees to mobility assessment this am. [facility] How much help from another person do you currently need... Turning from your back to your side None while in a flat bed without using bedrails? Moving from lying on back to sitting on None the side of a flat bed without using bedrails? Moving to and from a bed to a chair ( A little including a wheelchair)? Standing up from a chair using your arms A little ? (e.g., wheelchair, bedside chair) Walking in hospital room? A little Climbing 3-5 steps with a railing? A little Mobility Score 20 Mobility Level [facility] Mobility Calculator Mobility 6 Walk 10 steps or more Rehab PT IP Eval Objective Appearance Patient Behavior Appropriate Patient Orientation Person,Place,Time Difficulty following instructions none Speech Pattern Clear Ambulation Patient Able to Ambulate Yes Ambulation Observation IP General Gait Pattern Observation Ataxic Gait Ambulation Distance (feet) 75 Ambulation Assistive Device None Ambulation Ability Minimal x 1 (25% assist) Balance Ability to Arise Able, uses arms to help Sitting Balance Steady, safe Standing Balance Unsteady Dynamic Sitting Balance Ability Good Dynamic Standing Balance Ability Poor Transfers Bed Transfer Ability Independent Chair Transfer Ability Minimal x 1 (25% assist) Sit to Stand Bed Transfer Ability Minimal x 1 (25% assist) Sit to Stand Chair Transfer Ability Minimal x 1 (25% assist) Rehab PT IP prob,goals,plan Problems Date of Evaluation: 12/31/24 PT IP Problems Transfers,Gait,Balance Plan PT Intervention Plan Transfers,Gait,Balance, Therapeutic Exercise PT Plan Frequency Daily Duration LOS Discharge Goals Sit to Stand Chair Transfer Ability Contact Guard/Hand Hold Ambulation Assistive Device Rolling Walker Ambulation Distance (feet) 100 Discharge Plan PT Discharge Plan Pt is currently appropriate to return home once medically stable for d/c. Skilled acute therapy services indicated to improve balance with all standing activity in order to return pt to [facility]. Eval Complexity Eval Charge Codes 78683 - High Complexity PHYSICIAN CERTIFICATION: I certify the specified therapy services for Nirmal Hayward are required, authorized, and reviewed every 30 days.
[2024-12-31] MEDS: THIAMINE HCL IV (11:47)
[2024-12-31] MEDS: SODIUM CHLORIDE 0.9% IV (11:47)
[2024-12-31] MEDS: LORazepam 2MG/ML VIAL 1 MG IV (12:03)
[2024-12-31] MEDS: OFLOXACIN 0.3% OPHTH DROPS 5ML OP ×2 (12:13→18:45)
[2024-12-31] MEDS: ARTIFICIAL TEARS SOLN 15ML BOTTLE OP (13:40)
--- NOTE | 2024-12-31 18:02 | PEERSUPPORT ---
Peer Support Note Patient Information Patient Information: DOS: 12/31/2024 ? Reason: Ps Consult ? ? ETOH Last Ingested: 4 days ago when he was admitted. ? ETOH HX: Started drinking at age 31 ? ? Previous Treatment: Outpatient medication assisted treatment; Suboxone, stopped cold turkey by choice. ? Longest Length of Sobriety:3 days ? Legal Issues: None ? Support System: Brother at bedside, Laverne at bedside. Both in recovery multiple years. Children, grandchildren 2 girls and a boy. ? Current Stressors: -Alcohol withdrawals -Not able to walk, feels very weak and unstable in his legs ? Motivation for Change: Pt stated that he wants to be okay for his grandchildren. He has lost two women to divorce because of the alcohol. He is able to identify the generations of alcoholic in his life grandfather, and father. His father of alcohol and that?s how he stayed away from alcohol until he was 31 years old. Now its 18 years later and he is the same as them. He does have hope that he is able to do this and willing to accept help. He is interested in treatment to stay sober.? ? Potential Barriers: -Return to drinking; post discharge. -Untreated underlying mental and emotional issues (depression, anxiety, grief) -Lack of connection to recovery community -Pt states suboxone does not help him with his drinking: Unaware of medication options. ? Harm Reduction: -Connection to [facility] for ongoing recovery support -Medication discussed for assisted treatment of alcohol use disorder -Focus on physical wellbeing while admitted at [facility], to form a plan of action. -Treatment resource list for pt to consider inpatient or outpatient treatment. -Ps briefly discussed medications for alcohol use disorder ? ? Plan of action: Focus on physical wellness and the process of detox? Healthy communication with nurses and doctors; using his own voice Awareness of decision making- Strength Pt agrees to follow up with [facility] Support ? Ps will follow up on 01/02/2025 ?
[2024-12-31] MEDS: SODIUM CHLORIDE 0.9% 10ML VIAL 10 ML IV (21:36)
[2024-12-31] MEDS: PANTOPRAZOLE 40MG VIAL 40 MG IV (21:36)
[2025-01-01] MEDS: OFLOXACIN 0.3% OPHTH DROPS 5ML OP (01:08)
[2025-01-01 04:00] VITALS: BP 163/93; PULSE 88; RESP 17; TEMP 36.7; O2SAT 99; BMI 24.1
--- NOTE | 2025-01-01 04:47 | PC.NURSE ---
Pt. is alert and orientated x 4. Pt. on room air. CIWA scores 6 at 2000 and 2400. 0400 Pt. sleeping . Pt. has hand tremors. He stated he had some mild anxiety and a mild headache. Pt. was medicated with PO Ativan 1 mg. Family at bedside. Helpful and encouraging patient. Pt. sleeping off and on this shift. VSS Personal items and call botello in reach.
[2025-01-01] MEDS: FLUTICASONE/UMECLIDIN/VILANTER 100/62.5/25MCG INHALER 1 PUFF IH (06:22)
[2025-01-01 06:56] LABS: Basophils % 1.1 % (0.1-2.0); Eosinophils % 1.1 % (0.1-12.0); Hematocrit 36.8 % (42.0-52.0); Hemoglobin 12.8 g/dL (14.1-18.0); Lymphocytes # 1.2 K/mm3 (0.7-4.5); Lymphocytes % 34.6 % (10-50); Mean Corpuscular HGB Conc 34.8 g/dL (31.8-35.4); Mean Corpuscular Hemoglobin 35.8 pg (27.0-31.2); Mean Corpuscular Volume 102.8 fl (80-94); Mean Platelet Volume 11.9 fl (7.4-10.4); Monocytes # 0.4 K/mm3 (0.1-1.0); Monocytes % 11.2 % (1.7-9.3); Neutrophils # 1.8 K/mm3 (1.8-7.8); Neutrophils % 51.4 % (37.0-80.0); Platelet Count 66 K/mm3 (142-424); Red Blood Count 3.58 M/mm3 (4.60-6.20); Red Cell Distribution Width 13.5 % (11.5-17.5); White Blood Count 3.6 K/mm3 (4.8-10.8)
[2025-01-01 07:03] LABS: INR 0.88 (0.9-1.1)
[2025-01-01 07:05] LABS: Alanine Aminotransferase 115 U/L (12-78); Albumin Level 3.5 g/dl (3.5-5.0); Albumin/Globulin Ratio 1.3 (1.1-1.8); Alkaline Phosphatase 142 U/L (38-126); Anion Gap 5.5 mEq/L (5-15); Aspartate Amino Transferase 156 U/L (17-59); Bilirubin,Total 1.2 mg/dl (0.2-1.3); Calcium 9.1 mg/dl (8.4-10.2); Carbon Dioxide 26 mmol/L (22.0-30.0); Chloride 103 mmol/L (98-107); Creatinine Clearance Estimated 185 mL/min (50-200); Estimated Glomerular Filt Rate 177 ml/min (>60); GFR (African American) 215 ML/MIN (>60); Globulin 2.6 g/dL (1.3-3.2); Glucose 84 mg/dl (74-100); Potassium 3.5 mmoL/L (3.5-5.1); Sodium 131 mmol/L (136-145); Total Protein,Serum 6.1 g/dl (6.3-8.2)
[2025-01-01 07:06] LABS: Blood Urea Nitrogen < 2 mg/dl (9-20)
[2025-01-01 07:24] LABS: Phosphorous 3.2 mg/dl (2.5-4.5)
--- NOTE | 2025-01-01 07:30 | EXP.GE.CONS ---
History of Present Illness *Admission Date: 12/28/24 *History of present illness: Mr. Hayward is a 49-year-old gentleman with a long history of alcohol abuse. He does drink 15 beers daily along with hard liquor. He is admitted with jaundice and weakness and has had difficulty with ambulation. He was admitted with possible Warnicke's encephalopathy as well as high risk for seizures and decompensation. The patient does have heartburn but reports no abdominal pain, nausea or vomiting. He has had no hematemesis or melena. Imaging showed severe fatty infiltration of the liver consistent with acute alcoholic hepatitis. The spleen and pancreas were unremarkable. Labs on admission did show mild leukopenia and moderate thrombocytopenia. His platelet count today is 66,000. His hemoglobin and hematocrit are 12.8 and 36.8. Also, his liver chemistries are elevated with AST 156, ALT 115, alkaline phosphatase 142 and total bilirubin 1.2. His lipase on admission was 1778. His hepatitis B surface antigen was negative and his hepatitis C antibody was negative. GI was consulted for further evaluation. [facility] Disclaimer: The information contained in this section may have been updated after the patient was seen, as this information can be updated by other users. Family History Other Lung cancer Social History Smoking Status: Current every day smoker tobacco type: cigarettes packs per day: 2 alcohol intake: current alcohol intake frequency: a few times a week current occupational status: employed Travel in the last 8 weeks: None Have you lived/traveled outside [place] in past 30 days?: No Contact w/someone who lives/traveled outside US past 30 days?: No Exposure to someone with infectious disease in past 14 days?: No Do you have a fever (greater than 100.4 F or 38 C)?: No Have you tested positive for COVID-19: No Exposed to someone with COVID-19 in past 14 days?: No Do you have a sore throat?: No Do you have a cough?: No Do you have any weakness?: No Are you experiencing any nausea/vomitting?: No Do you have any diarrhea?: No Are you experiencing any unusual bleeding?: No Do you have any muscle aches/pain?: No Do you have any abdominal pain?: No Are you experiencing loss of taste or smell?: No Meds Home Medications and Allergies Home Medications ?Medication ?Instructions ?Recorded ?Confirmed ?Type No Known Home Medications 12/03/24 12/28/24 History New Prescriptions to Start Prescriptions: Allergies Allergy/AdvReac Type Severity Reaction Status Date / Time Penicillins Allergy Rash Verified 12/03/24 12:10 Exam (Inpt) Vital signs and Labs for Last 24 Hours: Temp Pulse Resp BP Pulse Ox O2 Del Method O2 Flow Rate 98.1 F 88 17 163/93 H 99 Room Air 2 01/01/25 04:00 01/01/25 04:00 01/01/25 04:00 01/01/25 04:00 01/01/25 04:00 01/01/25 06:52 12/31/24 07:03 Laboratory Results - last 24 hr 01/01/25 06:25: WBC 3.6 L D, RBC 3.58 L, Hgb 12.8 L, Hct 36.8 L, MCV 102.8 H, MCH 35.8 H, MCHC 34.8, RDW 13.5, Plt Count 66 L D, MPV 11.9 H, Neut % (Auto) 51.4, Lymph % (Auto) 34.6, [place] % (Auto) 11.2 H, Eos % (Auto) 1.1, Baso % (Auto) 1.1, Neut # (Auto) 1.8, Lymph # (Auto) 1.2, [place] # (Auto) 0.4, Eos # (Auto) 0.0, Baso # (Auto) 0.0, Sodium 131 L, Potassium 3.5, Chloride 103, Carbon Dioxide 26, Anion Gap 5.5, BUN < 2 L D, Creatinine 0.50 L, Estimated Creat Clear 185, Estimated GFR 177, Est GFR ( Amer) 215, Glucose 84, Calcium 9.1, Phosphorus 3.2, Magnesium 2.0 D, Total Bilirubin 1.2, AST 156 H D, ALT 115 H, Alkaline Phosphatase 142 H, Total Protein 6.1 L, Albumin 3.5, Globulin 2.6, Albumin/Globulin Ratio 1.3 I & O for Labs for Last 24 Hours: Intake & Output 12/29/24 12/30/24 12/31/24 01/01/25 23:59 23:59 23:59 23:59 Intake Total 1532 / 1532 2009 1450 / 1690 240 / 240 Output Total 850 / 850 500 / 500 0 / 0 0 / 0 Balance 682 / 682 1510 / 1510 1450 / 1690 240 / 240 Weight 154 lb 5.177 oz 155 lb 6.4 oz 155 lb 159 lb 8 oz Comment:: Ill-appearing gentleman who appears weak in mild distress Comment:: Minimally icteric Comments:: Normoactive bowel sounds, mild tenderness, moderate hepatosplenomegaly, no ascites Results Labs 01/01/25 06:25 01/01/25 06:25 Labs: Laboratory Results - last 24 hr 01/01/25 06:25: WBC 3.6 L D, RBC 3.58 L, Hgb 12.8 L, Hct 36.8 L, MCV 102.8 H, MCH 35.8 H, MCHC 34.8, RDW 13.5, Plt Count 66 L D, MPV 11.9 H, Neut % (Auto) 51.4, Lymph % (Auto) 34.6, [place] % (Auto) 11.2 H, Eos % (Auto) 1.1, Baso % (Auto) 1.1, Neut # (Auto) 1.8, Lymph # (Auto) 1.2, [place] # (Auto) 0.4, Eos # (Auto) 0.0, Baso # (Auto) 0.0, Sodium 131 L, Potassium 3.5, Chloride 103, Carbon Dioxide 26, Anion Gap 5.5, BUN < 2 L D, Creatinine 0.50 L, Estimated Creat Clear 185, Estimated GFR 177, Est GFR ( Amer) 215, Glucose 84, Calcium 9.1, Phosphorus 3.2, Magnesium 2.0 D, Total Bilirubin 1.2, AST 156 H D, ALT 115 H, Alkaline Phosphatase 142 H, Total Protein 6.1 L, Albumin 3.5, Globulin 2.6, Albumin/Globulin Ratio 1.3 Assessment and Plan *Assessment and plan (1) Acute alcoholic hepatitis: Status: Acute Category: Medical Code(s): K70.10 - Alcoholic hepatitis without ascites (2) Alcoholic pancreatitis: Status: Acute Category: Medical Code(s): K85.20 - Alcohol induced acute pancreatitis without necrosis or infection Plan 1. Acute alcoholic hepatitis (mild) and alcoholic pancreatitis. I do feel that he likely has some hepatic fibrosis and his neutropenia/thrombocytopenia may be related to hypersplenism. I will obtain additional testing including fibrotic markers. I will obtain ferritin/iron levels. The patient will need to undergo alcohol rehabilitation and treatment for alcohol use disorder. We will follow liver/pancreas function as an outpatient. Will obtain ammonia levels presently. Would consider adding pancreatic digestive enzymes for likelihood of chronic alcoholic pancreatitis. I will obtain fecal elastase as well.
[2025-01-01] MEDS: LORazepam 1MG TABLET 1 MG PO (07:47)
[2025-01-01 08:00] VITALS: BP 146/95; PULSE 114; RESP 18; TEMP 37; O2SAT 97
--- NOTE | 2025-01-01 08:13 | SW/DCPLANNER ---
I spoke w/ this patient regarding plans once medically stable for discharge. Patient stated that he is not able to walk and requires assistance to the bathroom. I did suggest Acute Care Rehab for this patient but he is not interested at this time. Patient stated that he does have family at home that will be able to assist him. Patient voiced he will need a rolling walker at time of discharge. Patient and I also discussed inpatient vs outpatient alcohol services. Patient stated that he is not interested in inpatient rehab at this time. Patient is considering outpatient w/ [facility]. Peer Support is also following this patient. I will continue to follow up w/ patient and family to assist w/ any needs/new orders. Discharge date is unknown at this time.
[2025-01-01 08:25] LABS: Ammonia 23 umol/L (9-30); Iron 94 ug/dL (49-181)
[2025-01-01 08:34] LABS: Total Iron Binding Capacity 215 ug/dL (261-462)
[2025-01-01] MEDS: THIAMINE 100MG TABLET 100 MG PO (08:44)
[2025-01-01] MEDS: METOPROLOL TARTRATE 25MG TABLET 25 MG PO (08:44)
[2025-01-01] MEDS: PRENATAL MULTIVITAMIN W/IRON 1 EACH PO (08:45)
[2025-01-01] MEDS: FOLIC ACID 1MG TABLET 1 MG PO (08:45)
[2025-01-01] MEDS: PHENobarbital SOD 65MG/ML INJ 65 MG IV (08:45)
[2025-01-01 09:01] LABS: Ferritin 532 ng/ml (17.9-464)
--- NOTE | 2025-01-01 09:56 | CARE MANAGER ---
Patient will require the use of a walker to aid in ambulation due to a mobility impairment that cannot be corrected with a cane.
--- NOTE | 2025-01-01 12:04 | P.DS_ITS ---
General Admission date:: 12/28/24 HPI HPI HPI: Mr. Hayward is a 49-year-old gentleman with a long history of alcohol abuse. He does drink 15 beers daily along with hard liquor. He is admitted with jaundice and weakness and has had difficulty with ambulation. He was admitted with possible Warnicke's encephalopathy as well as high risk for seizures and decompensation. The patient does have heartburn but reports no abdominal pain, nausea or vomiting. He has had no hematemesis or melena. Imaging showed severe fatty infiltration of the liver consistent with acute alcoholic hepatitis. The spleen and pancreas were unremarkable. Labs on admission did show mild leukopenia and moderate thrombocytopenia. His platelet count today is 66,000. His hemoglobin and hematocrit are 12.8 and 36.8. Also, his liver chemistries are elevated with AST 156, ALT 115, alkaline phosphatase 142 and total bilirubin 1.2. His lipase on admission was 1778. His hepatitis B surface antigen was negative and his hepatitis C antibody was negative. GI was consulted for further evaluation. Hospital Course Hospital Course Hospital Course: Nirmal Mejia is a 49-year-old male who presents with weakness and inability to walk. Found to have alcohol intoxication, alcoholic hepatitis, pancreatitis, and Wernicke's encephalopathy. #Alcohol use disorder #Alcohol withdrawal #Alcoholic hepatitis/pancreatitis #Wernicke's encephalopathy #Possible cirrhosis ? Longstanding history of alcohol use disorder, presented with elevated AST/ALT/ALP and lipase with symptoms of lower extremity weakness, confabulation, horizontal nystagmus suggestive of Warnicke's encephalopathy. ? Alcohol withdrawal was managed with phenobarbital and Ativan, no longer having alcohol withdrawal symptoms. ? AST/ALT/ALP improved to 156/115/142. Total bilirubin normal. ? Platelets low 66 today, but PT/INR, albumin, CT abdomen/pelvis not suggestive of cirrhosis at this time. CT does show severe fatty liver disease. ? GI consulted, obtaining fibrotic markers including [place] FibroSure plus levels. Patient is currently on n.p.o. for FELICIANO FibroSure plus blood draw, will return in the morning after being NPO. ? Extensively discussed alcohol cessation which patient is motivated to do, family at bedside and supportive. Peer support consulted, [facility]. ? Warnicke's encephalopathy symptoms improved with IV thiamine, transitioned to oral thiamine 200 mg daily for 14 days then 100 mg daily thereafter. Also prescribed daily folic acid for low folic acid levels. ? Discharged with naltrexone 50 mcg for 14 days, will follow-up with [facility] for refills thereafter. ? Will follow-up with GI within 2 weeks. #GERD ? Protonix 40 mg daily. #Tobacco use disorder #COPD ? Started Trelegy 100. Nicotine patch daily. Total time spent on discharge: 32 minutes on chart review, counseling, documentation, and direct care with patient. Exam Data for Last 24 hours Vital signs and Labs for Last 24 Hours: Temp Pulse Resp BP Pulse Ox O2 Del Method O2 Flow Rate 98.6 F 114 H 18 146/95 H 97 Room Air 2 01/01/25 08:00 01/01/25 08:00 01/01/25 08:00 01/01/25 08:00 01/01/25 08:00 01/01/25 11:00 12/31/24 07:03 Laboratory Results - last 24 hr 01/01/25 06:25: WBC 3.6 L D, RBC 3.58 L, Hgb 12.8 L, Hct 36.8 L, MCV 102.8 H, MCH 35.8 H, MCHC 34.8, RDW 13.5, Plt Count 66 L D, MPV 11.9 H, Neut % (Auto) 51.4, Lymph % (Auto) 34.6, [place] % (Auto) 11.2 H, Eos % (Auto) 1.1, Baso % (Auto) 1.1, Neut # (Auto) 1.8, Lymph # (Auto) 1.2, [place] # (Auto) 0.4, Eos # (Auto) 0.0, Baso # (Auto) 0.0, PT 10.0 L, INR 0.88 L, Sodium 131 L, Potassium 3.5, Chloride 103, Carbon Dioxide 26, Anion Gap 5.5, BUN < 2 L D, Creatinine 0.50 L, Estimated Creat Clear 185, Estimated GFR 177, Est GFR ( Amer) 215, Glucose 84, Calcium 9.1, Phosphorus 3.2, Magnesium 2.0 D, Total Bilirubin 1.2, AST 156 H D, ALT 115 H, Alkaline Phosphatase 142 H, Total Protein 6.1 L, Albumin 3.5, Globulin 2.6, Albumin/Globulin Ratio 1.3 01/01/25 08:00: Iron 94, TIBC 215 L, Iron Saturation 43.97954, Ferritin 532 H, Ammonia 23 I & O for Last 24 hours: Intake & Output 12/29/24 12/30/24 12/31/24 01/01/25 23:59 23:59 23:59 23:59 Intake Total 1532 / 1532 2009 1450 / 1690 460 / 460 Output Total 850 / 850 500 / 500 0 / 0 0 / 0 Balance 682 / 682 1510 / 1510 1450 / 1690 460 / 460 Weight 70 kg 70.488 kg 70.307 kg 72.348 kg Constitutional Constitutional: no acute distress *Routine HEENT Exam Head: Present normocephalic Eye: Present EOMI and PERRL ENT: Present mucous membranes moist *Routine Neck Exam Neck: Present supple; Absent lymphadenopathy *Routine Respiratory Exam Respiratory: Present CTA bilaterally *Routine Cardiovascular Exam Cardiovascular: Present RRR *Routine Abdominal Exam Abdominal: Present soft and normoactive bowel sounds; Absent tenderness *Routine Extremities Exam Extremities: Absent cyanosis, clubbing or edema Comments: Lower extremity weakness. *Routine Skin Exam Skin: Present warm; Absent rash *Routine Neurological Exam Neurological: Present alert and oriented X3 Results Data Completed and Pending Labs on day of discharge: Labs from last 24 hours 01/01/25 01/01/25 08:00 06:25 WBC 3.6 L D RBC 3.58 L Hgb 12.8 L Hct 36.8 L MCV 102.8 H MCH 35.8 H MCHC 34.8 RDW 13.5 Plt Count 66 L D MPV 11.9 H Neut % (Auto) 51.4 Lymph % (Auto) 34.6 [place] % (Auto) 11.2 H Eos % (Auto) 1.1 Baso % (Auto) 1.1 Neut # (Auto) 1.8 Lymph # (Auto) 1.2 [place] # (Auto) 0.4 Eos # (Auto) 0.0 Baso # (Auto) 0.0 PT 10.0 L INR 0.88 L Sodium 131 L Potassium 3.5 Chloride 103 Carbon Dioxide 26 Anion Gap 5.5 BUN < 2 L D Creatinine 0.50 L Estimated Creat Clear 185 Estimated GFR 177 Est GFR ( Amer) 215 Glucose 84 Calcium 9.1 Phosphorus 3.2 Magnesium 2.0 D Iron 94 TIBC 215 L Iron Saturation 43.48367 Ferritin 532 H Total Bilirubin 1.2 AST 156 H D ALT 115 H Alkaline Phosphatase 142 H Ammonia 23 Total Protein 6.1 L Albumin 3.5 Globulin 2.6 Albumin/Globulin Ratio 1.3 DS: Diagnosis Discharge Diagnosis (1) Acute alcoholic hepatitis: Status: Acute Code(s): K70.10 - Alcoholic hepatitis without ascites (2) Alcoholic pancreatitis: Status: Acute Code(s): K85.20 - Alcohol induced acute pancreatitis without necrosis or infection Meds Home Medications and Allergies Home Medications ?Medication ?Instructions ?Recorded ?Confirmed ?Type fluticasone fur. 100 mcg-umeclid 1 inh inhalation DAILY 30 days #60 01/01/25 Rx 62.5 mcg-vilant 25 mcg ea inhalat.powder (Trelegy Ellipta) folic acid 1 mg tablet 1 mg PO DAILY 30 days #30 tabs 01/01/25 Rx metoprolol tartrate 25 mg tablet 25 mg PO BID 30 days #60 tabs 01/01/25 Rx naltrexone 50 mg tablet 50 mg PO DAILY #14 tabs 01/01/25 Rx nicotine 21 mg/24 hr daily 1 patch transdermal DAILY #28 ea 01/01/25 Rx transdermal patch pantoprazole 40 mg tablet,delayed 40 mg PO DAILY #30 tabs 01/01/25 Rx release (Protonix) thiamine mononitrate (vit B1) 100 See Rx Instructions .Route 01/01/25 Rx mg tablet .COMPLEX 30 days #60 tabs New Prescriptions to Start Prescriptions: [id number] [Trelegy Ellipta] Jason Swain folic acid Wiliam,Jason metoprolol tartrate Wiliam,Jason naltrexone Wiliam,Jason nicotine Wiliam,Jason pantoprazole [Protonix] Jason Swain thiamine mononitrate (vit B1) Jason Swain Allergies Allergy/AdvReac Type Severity Reaction Status Date / Time Penicillins Allergy Rash Verified 12/03/24 12:10 Discharge Plan Disposition Patient Disposition: Home, Self-Care Condition: Fair Discharge Order Discharge Orders: Discharge Order (Routine); Ordered 01/01/25 Ordered By: Jason Swain Follow up Plan Follow up with: Erica Novak APRN [Referring] - 01/07/25 11:30 am Nathan Alvarado II, MD [Staff Physician] - 01/07/25 Prescriptions/Medication Reconciliation: New naltrexone 50 mg tablet 50 mg PO DAILY Qty: 14 0RF thiamine mononitrate (vit B1) 100 mg Tablet See Rx Instructions .ROUTE .COMPLEX 30 Days Qty: 60 1RF Rx Instructions: Take 200 mg daily for 2 weeks, then 100 mg daily. folic acid 1 mg Tablet 1 mg PO DAILY 30 Days Qty: 30 0RF metoprolol tartrate 25 mg Tablet 25 mg PO BID 30 Days Qty: 60 0RF Trelegy Ellipta 100-62.5-25 mcg Blister With Device 1 inh inhalation DAILY 30 Days Qty: 60 0RF pantoprazole [Protonix] 40 mg tablet,delayed release (DR/EC) 40 mg PO DAILY Qty: 30 0RF Rx Instructions: Take on empty stomach. nicotine 21 mg/24 hr patch 24 hour 1 patch transdermal DAILY Qty: 28 0RF Problem Reconciliation Problems Reviewed?: Yes Patient Discharge Instructions Patient Instructions: DI for Pancreatitis, DI for Drug or Alcohol Withdrawal Print Language: Pakistani Providers Primary Care Provider: Provider,Referral Admit Provider: Ladarius Yancey Attending Provider: Ladarius Yancey
[2025-01-02 09:06] LABS: RPR W/RFX Titers Nonreactive (Nonreactive)
[2025-01-02 17:14] LABS: Vitamin B1 81.9 nmol/L (66.5-200.0)
--- NOTE | 2025-01-03 12:54 | SW/DCPLANNER ---
Phoned patients number x2 and left a message with name and number. Smiley RAVI [employer]
== END 2025-01-01 12:52 | disposition home or self-care (01) | DRG 432 ==
LOC: ER 15:33 → ICU 12-29 05:42 → 2ND 12-31 09:13
PROVIDERS: Internal Medicine Gastroenterology; Student in an Organized Health Care Education/Training Program; Admitting Provider Internal Medicine Adolescent Medicine; Emergency Provider Emergency Medicine; Visit Provider Internal Medicine Adolescent Medicine
DX: K70.10 Alcoholic hepatitis without ascites (principal); K85.20 Alcohol induced acute pancreatitis without necrosis or infection; E51.2 Wernicke's encephalopathy; F10.239 Alcohol dependence with withdrawal, unspecified; Y90.8 Blood alcohol level of 240 mg/100 ml or more; F10.229 Alcohol dependence with intoxication, unspecified; F17.210 Nicotine dependence, cigarettes, uncomplicated; Z88.0 Allergy status to penicillin; K21.9 Gastro-esophageal reflux disease without esophagitis; J44.9 Chronic obstructive pulmonary disease, unspecified; D69.6 Thrombocytopenia, unspecified
CPT/HCPCS: 36415; 71046; 74177; 80053; 80307; 80320; 82140; 82607; 82728; 82746; 82803; 83540; 83550; 83605; 83690; 83735; 84100; 84425; 85007; 85025; 85610; 85730; 86592; 87081; 93005; 94640; 97116; 97163; 97165; 97530; 99285; J2060; J2919; J3360; J3411; J7120; Q9967

== ENCOUNTER 2025-01-02 09:48 | Outpatient (CLI) | payer BC, SELFPAY ==
[2025-01-05 02:09] LABS: ALT (SGPT) P5P 95 IU/L (0-55); AST (SGOT) P5P 97 IU/L (0-40); Alpha 2-Macroglobulins, Qn 242 mg/dL (110-276); Apolipoprotein A-1 128 mg/dL (101-178); Bilirubin, Total 0.9 mg/dL (0.0-1.2); Cholesterol, Total 184 mg/dL (100-199); Fibrosis Score 0.77 (0.00-0.21); GGT 767 IU/L (0-65); Glucose 100 mg/dL (70-99); Haptoglobin 117 mg/dL (23-355); Steatosis Score 0.77 (0.00-0.40); Triglycerides 87 mg/dL (0-149)
== END 2025-01-02 23:59 | disposition home or self-care (01) ==
LOC: LAB 09:53
PROVIDERS: PCP Nurse Practitioner Family; Visit Provider Internal Medicine Gastroenterology
DX: R69 Illness, unspecified (principal)
CPT/HCPCS: 36415; 81596; 82247; 82465; 82947; 82977; 83883; 84450; 84460; 84478

== ENCOUNTER 2025-02-04 11:26 | Outpatient (CLI) | payer MEDICAID, SELFPAY ==
[2025-02-04 11:48] LABS: Basophils # 0.1 K/mm3 (0-0.2); Basophils % 0.8 % (0.1-2.0); Eosinophils # 0.3 Kmm3 (0.0-0.4); Eosinophils % 2.9 % (0.1-12.0); Hematocrit 44.7 % (42.0-52.0); Hemoglobin 15.1 g/dL (14.1-18.0); Lymphocytes # 2.2 K/mm3 (0.7-4.5); Lymphocytes % 23.6 % (10-50); Mean Corpuscular HGB Conc 33.8 g/dL (31.8-35.4); Mean Corpuscular Hemoglobin 33.3 pg (27.0-31.2); Mean Corpuscular Volume 98.7 fl (80-94); Monocytes # 0.7 K/mm3 (0.1-1.0); Monocytes % 7.5 % (1.7-9.3); Nucleated Red Blood Cells # 0 10^3/uL; Nucleated Red Blood Cells % 0 %; Platelet Count 219 K/mm3 (142-424); Red Blood Count 4.53 M/mm3 (4.60-6.20); Red Cell Distribution Width-SD 47.3 fL; White Blood Count 9.2 K/mm3 (4.8-10.8)
[2025-02-04 12:00] LABS: INR 0.87 (0.9-1.1); Prothrombin Time 9.9 seconds (10.1-12.5)
[2025-02-04 12:09] LABS: Ammonia < 9 umol/L (9-30)
[2025-02-04 12:19] LABS: Albumin Level 3.8 g/dl (3.5-5.0); Chloride 101 mmol/L (98-107); Potassium 3.6 mmoL/L (3.5-5.1); Sodium 135 mmol/L (136-145)
[2025-02-04 12:21] LABS: Alanine Aminotransferase 13 U/L (12-78); Albumin/Globulin Ratio 1.3 (1.1-1.8); Alkaline Phosphatase 106 U/L (38-126); Anion Gap 7.6 mEq/L (5-15); Aspartate Amino Transferase 24 U/L (17-59); Bilirubin,Total 0.5 mg/dl (0.2-1.3); Blood Urea Nitrogen 3 mg/dl (9-20); Carbon Dioxide 30 mmol/L (22.0-30.0); Estimated Glomerular Filt Rate 120 ml/min (>60); GFR (African American) 146 ML/MIN (>60); Total Protein,Serum 6.8 g/dl (6.3-8.2)
[2025-02-04 12:22] LABS: Calcium 9.6 mg/dl (8.4-10.2); Glucose 84 mg/dl (74-100); Iron 100 ug/dL (49-181); Lipase 148 U/L (23-300)
[2025-02-04 12:31] LABS: Total Iron Binding Capacity 282 ug/dL (261-462)
[2025-02-04 12:58] LABS: Ferritin 176 ng/ml (17.9-464)
[2025-02-05 13:12] LABS: AFP, Tumor Marker 2.8 ng/mL (0.0-6.9)
== END 2025-02-04 23:59 | disposition home or self-care (01) ==
LOC: LAB 11:30
PROVIDERS: PCP Nurse Practitioner Family; Visit Provider Nurse Practitioner Family
DX: K85.90 Acute pancreatitis without necrosis or infection, unspecified (principal); K74.60 Unspecified cirrhosis of liver
CPT/HCPCS: 36415; 80053; 82105; 82140; 82728; 83540; 83550; 83690; 85025; 85610

== ENCOUNTER 2025-02-05 14:43 | Outpatient (CLI) | payer MEDICAID, SELFPAY ==
[2025-02-09 00:15] LABS: Pancreatic Elastase, Fecal 318 (>200)
== END 2025-02-05 23:59 | disposition home or self-care (01) ==
LOC: LAB 14:43
PROVIDERS: PCP Nurse Practitioner Family; Visit Provider Nurse Practitioner Family
DX: K85.90 Acute pancreatitis without necrosis or infection, unspecified (principal); R14.3 Flatulence; R10.9 Unspecified abdominal pain
CPT/HCPCS: 82656